=== PATIENT | female | born 1960 | race Caucasian/White ===

== ENCOUNTER 2020-11-22 13:41 | Outpatient (REF) | payer OTHER, SELFPAY | END 2020-11-22 13:42 | disposition home or self-care (01) | LOC: HO.LAB 13:41 | PROVIDERS: PCP Internal Medicine Endocrinology, Diabetes & Metabolism; Visit Provider Internal Medicine | DX: Z20.822 Contact with and (suspected) exposure to COVID-19 (principal) | CPT/HCPCS: C9803; U0003; U0005 ==

== ENCOUNTER 2021-06-02 09:33 | Observation (INO) | payer OTHER, SELFPAY ==
[2021-06-02] VITALS (7 sets, daily range): BP systolic 143–185; BP diastolic 78–87; PULSE 74–100; RESP 14–20; TEMP 36.1–36.8; O2SAT 96–98; BMI 39.5
--- NOTE | ~2021-06-02 | CT_ITS ---
EXAMINATION: CT HEAD WITHOUT CONTRAST CLINICAL INFORMATION: Headache COMPARISON: Earlier same date TECHNIQUE: Contiguous axial imaging was performed from the skull base to vertex without intravenous administration of contrast. This CT examination was performed using dose optimization techniques as appropriate, variously including the following: *Automated exposure control *Adjustment of mA and/or kV according to patient size (this includes techniques or standardized protocols for targeted exams where dose is matched to indication/reason for exam; i.e. extremities or head) *Use of iterative reconstruction technique DLP: 776c mGy-cm FINDINGS: There is no evidence of acute intracranial hemorrhage or territorial infarction. No abnormal mass effect or midline shift is seen. Flores to white matter differentiation is well preserved. No extra-axial fluid collections are identified. The ventricles are normal in size. There is no abnormal attenuation within the brain parenchyma. Hyperostosis frontalis. The mastoid air cells and visualized portions of the paranasal sinuses are well aerated. CT/CT head/brain wo con IMPRESSION: No acute intracranial pathology.
--- NOTE | ~2021-06-02 | CT_ITS ---
EXAMINATION: CT ANGIOGRAM HEAD CT ANGIOGRAM NECK CLINICAL INFORMATION: Left-sided weakness/paresthesia. COMPARISON: CT head from 06/02/2021. TECHNIQUE: Initial noncontrast window display designer imaging of the head and neck was performed. Comparison is made with noncontrast head CT from earlier today. Test bolus sequences followed by intravenous administration 70 mL of Omnipaque 350. Helical imaging was performed in the axial plane from the aortic arch to the skull vertex. Delayed postcontrast imaging of the head was also performed. The data was processed at the certified neurodiagnostic technologist's workstation for generation of MIP sequences. Angled MIPs and volume rendered reformatted images were also generated at an offline 3D workstation. Stenoses are assessed in accordance with NASCET criteria unless otherwise indicated. This CT examination was performed using dose optimization techniques as appropriate, variously including the following: *Automated exposure control. *Adjustment of mA and/or kV according to patient size (this includes techniques or standardized protocols for targeted exams where dose is matched to indication/reason for exam; i.e. extremities or head). *Use of iterative reconstruction technique. DLP: 1613 mGy-cm FINDINGS: CT Head: There is no evidence of acute intracranial hemorrhage or edematous territorial infarction. There is no abnormal attenuation within the brain parenchyma. Flores-white matter differentiation is preserved. The ventricles are normal in size and configuration. No evidence for obstructive hydrocephalus. No abnormal mass effect or midline shift. No extra-axial fluid collections. No pathologic intra-axial enhancement or regional oligemia. No acute soft tissue or osseous abnormalities. Mild mucosal thickening of the paranasal sinuses. The mastoid air cells and middle ear cavities are clear. Periapical lucencies associated with the mandibular left 2nd premolar and maxillary left 1st molar. CT Neck: The thyroid gland and remaining cervical soft tissues are within normal limits. Straightening of the normal cervical lordosis. Moderate degenerative disc disease at C5-C6 and C6-C7 with disc/osteophyte complex formation. CT Upper Chest: The visualized lung apices and upper mediastinum are within normal limits. Neck CTA: Aortic Arch: Normal contour and caliber with moderate calcific atherosclerotic disease. Classic 3 vessel branching pattern of the aortic arch. Great Vessel Origins: No significant stenosis of the branch origins. Right Common Carotid Artery: No focal stenosis or occlusion. Cervical Right Internal Carotid Artery: Calcific atherosclerotic disease of the carotid bulb and proximal internal carotid artery causing less than 50% stenosis. Left Common Carotid Artery: No focal stenosis or occlusion. Cervical Left Internal Carotid Artery: Calcific atherosclerotic disease of the carotid bulb and proximal internal carotid artery causing less than 50% stenosis. Cervical Right Vertebral Artery: Co-dominant. No focal stenosis or occlusion. Cervical Left Vertebral Artery: Co-dominant. No focal stenosis or occlusion. Brain CTA: Intracranial Internal Carotid Arteries: Mild calcific atherosclerotic disease of the intracranial internal carotid arteries without occlusion or flow-limiting stenosis. Right Anterior Cerebral Artery: Normal A1 segment. Normal opacification of the distal LILLIE segments. Left Anterior Cerebral Artery: Normal A1 segment. Normal opacification of the distal LILLIE segments. Anterior Communicating Artery: Normal. Right Middle Cerebral Artery: Normal M1 segment of the MCA without focal stenosis or occlusion. Normal arborization of the distal segments. Left Middle Cerebral Artery: Normal M1 segment of the MCA without focal stenosis or occlusion. Normal arborization of the distal segments. Right Vertebral Artery: Normal V4 segment. Normal opacification of the proximal segments of the posterior inferior cerebellar artery. Left Vertebral Artery: Normal V4 segment. The posterior inferior cerebellar artery is not well opacified; however, there is no CT evidence of acute occlusion. Basilar Artery: Normal without focal stenosis or occlusion. Normal appearance of the proximal superior cerebellar arteries. Right Posterior Cerebral Artery: Normal P1 segment. Normal opacification of the distal PRE CODER segments. Left Posterior Cerebral Artery: The P1 segment is diminutive. origin of the PRE CODER with robust opacification of the posterior communicating artery. Normal opacification of the distal PRE CODER segments. Normal opacification of the superior sagittal, straight, transverse, and sigmoid sinuses. CT/CT angio head neck stroke IMPRESSION: 1. No evidence of acute intracranial hemorrhage or edematous territorial infarction. Mild underlying microangiopathy. 2. CTA of the head and neck without proximal occlusion or flow-limiting stenosis.
--- NOTE | ~2021-06-02 | CT_ITS ---
EXAMINATION: CT HEAD WITHOUT CONTRAST (STROKE PROTOCOL) CLINICAL INFORMATION: Stroke protocol. Left-sided weakness and paresthesia COMPARISON: None TECHNIQUE: Contiguous axial imaging was performed from the skull base to vertex without intravenous administration of contrast. This CT examination was performed using dose optimization techniques as appropriate, variously including the following: *Automated exposure control *Adjustment of mA and/or kV according to patient size (this includes techniques or standardized protocols for targeted exams where dose is matched to indication/reason for exam; i.e. extremities or head) *Use of iterative reconstruction technique DLP: 778 mGy-cm FINDINGS: There is no intracranial hemorrhage, hematoma, or extra-axial fluid collection. The ventricles are normal in size. There is no hydrocephalus, edema, or mass effect. The zuniga-white matter differentiation appears symmetric. There is no acute infarct or mass lesion. The calvarium appears intact. There is no pneumocephalus or orbital emphysema. The visualized sinuses and middle ears and mastoid air cells show no significant mucosal thickening. There are no air-fluid levels. CT/CT head for stroke IMPRESSION: No acute intracranial pathology. This critical result was discussed with Dr. Fabian at 10:12 AM hours on June 02, 2021. It was ascertained that the content and urgency of the report was understood at the time of direct communication.
--- NOTE | 2021-06-02 09:47 | ECG_ITS ---
Test Reason : WEAKNESS Blood Pressure : / mmHG Vent. Rate : 090 BPM Atrial Rate : 092 BPM P-R Int : 144 ms QRS Dur : 086 ms QT Int : 382 ms P-R-T Axes : 056 -09 019 degrees QTc Int : 467 ms Normal sinus rhythm Otherwise normal ECG When compared with ECG of 09-JAN-2009 17:38, No significant changes seen Referred By: Palmira Victoria Electronically Signed By:Martin Miller
--- NOTE | 2021-06-02 09:48 | ED.NEUROSD ---
HPI - Neuro Symptoms/Deficit General Chief Complaint: Weakness Stated Complaint: quest stroke complete l side Time Seen by Provider: 06/02/21 09:38 Source: patient Mode of arrival: ambulatory Limitations: no limitations History of Present Illness HPI Narrative: 60-year-old female with a past medical history of diabetes and hypertension presenting to the ER with complaints of sudden onset of dizziness/ lightheadedness with left-sided weakness/ paresthesia that started approximately 15-30 minutes prior to arrival when she was getting ready to leave her house she was going down the stairs and she felt like she was going to fall although she was able to catch herself on the stairs therefore she is concerned for possible stroke. She reports that she still feels a lightheadedness/ paresthesia. She reports approximately 1-2 weeks ago she had a similar presentation although she had nor did and she reports at that time she felt like she could not feed herself although it resolved and she did not get evaluated due to it resolving. Denies any other episodes other than those two. Denies any recent falls or trauma, denies history of stroke or ID, denies being on any blood thinners. Denies any changes in vision, nausea, jaw pain, vomiting, chest pain or shortness of breath, dyspnea on exertion, orthopnea, palpitations, abdominal pain, back pain, rashes, lower extremity edema or calf tenderness, changes in voice her speech or any other symptoms complaints or concerns at this time. 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) Location: left arm and left leg History of same: Yes ( See above) Severity: mild Quality: weak, numb and constant Relieving factors: none Exacerbating factors: none Context: sudden onset On Anticoagulants: No Associated symptoms: other ( lightheadedness/dizziness) Treatments Prior to Arrival: none Related Data Allergies Allergy/AdvReac Type Severity Reaction Status Date / Time Penicillins Allergy Hives Verified 06/02/21 09:48 From ZANTAC Allergy Unknown ANAPHYLAXIS Uncoded 06/02/21 09:47 Review of Systems Review of Systems: Constitutional : No Fever, No Chills, No Night Sweats, No Fatigue, No Malaise ENT/Mouth : No Ear Pain, No Nasal Congestion, No Sinus Pain, No sore throat, No Rhinorrhea Eyes: No Eye Pain, No Swelling, No Redness, No Foreign Body, No Discharge, No Vision Changes Cardiovascular : No Chest Pain, No SOB, No Dyspnea on Exertion, No Orthopnea, No Palpitations Respiratory : No Cough, No Sputum, No Wheezing, No Dyspnea Gastrointestinal : No Nausea, No Vomiting, No Diarrhea, No Constipation, No abdominal Pain, No Hematochezia, No Melena Genitourinary : No Dysuria, No Urinary Frequency, No Urinary Incontinence, No Urgency, No Flank Pain Musculoskeletal : No joint pain, No Myalgias Skin : No lacerations Neuro : + dizziness/lightheadedness, + left sided general weakness per patient and left sided numbness/ paresthesia sensation, No Loss of Consciousness, No Dizziness, No Headache Yes all other systems are reviewed and are negative [facility] Past Medical History Attestation statement: The following information was validated with the patient. Medical History (Updated 06/02/21 @ 11:36 by Lucas Fortune MD) Diabetes HTN (hypertension) Obesity Social History Social History Advance Directives: No Advance Directives Information Provided: Yes Patient : No Physical Exam Vital Signs: Vital Signs: Last Vital Signs Temp 97.8 F 06/02/21 09:41 Pulse 86 06/02/21 10:19 Resp 14 06/02/21 10:19 BP 185/87 H 06/02/21 10:23 Pulse Ox 96 06/02/21 10:19 BMI result Body Mass Index 39.5 Vital signs have been reviewed as normal and appeared to be correct. Blood pressure normal. Heart rate normal. Respiration rate normal. Temperature normal. Oxygen saturation normal. Appearance: Alert. Oriented X3. No acute distress. Head: Normal external exam. Normocephalic. Atraumatic. Able to rotate head bilaterally. Eyes: PERRLA. EOMI. No nystagmus noted. Conjunctiva and sclera normal. Eyelids normal. Corneal reflex normal. ENT: EAC normal. TM's Normal. Hearing normal. Pharynx normal. Uvula midline. tongue midline. Moist mucous membranes. No trismus noted. No drooling noted. No muffled voice noted. No nystagmus noted. Neck: Normal inspection. Neck supple. FROM. No adenopathy. Trachea midline. Thyroid Normal. No meningeal signs. No neck mass noted. CVS: Normal heart rate and rhythm. Heart sound normal. No murmurs noted. Pulses normal throughout. Respiratory: No respiratory distress. Painless inspiration. Breath sounds normal. No wheezes/rales/rhonchi noted. Chest nontender. No accessory muscle usage noted or decreased air movement noted. Abdomen: Soft and nontender. Bowel sounds normal in all 4 quadrants. No distention noted. No organomegaly noted. No visible injury noted. Back: No CVA tenderness. Full range of motion noted. Skin: Skin warm and dry. Normal skin color. Normal skin turgor. No rashes/lesions/lacerations noted. Extremities: No lower extremity edema. Extremities exhibit normal range of motion. Extremities nontender. Able to shrug shoulders bilaterally and keep up against resistance. Neuro: Oriented X 3. No motor deficit. No sensory deficit. Reflexes normal. Moving all extremities. No focal motor deficits. Cranial nerves II-XI intact bilaterally. Facial strength normal. Normal cognition. Speech normal. Gait normal. Strength 5/5 throughout. No pronator drift. No tremor noted. No fasciculations noted. No rigidity noted. Muscle tone normal throughout. No asterixis noted. [id number] test normal. Heel to clifton test normal. Tandem gait normal. Does not sway with eyes open. Romberg test negative. Rapid alternating movement upper extremity normal. Rapid alternating movement lower extremity normal. Hand drop from overhead Misses face. NIHSS score 0. Course Course Course Narrative: 9:50am - 60-year-old female with a past medical history of diabetes and hypertension presenting to the ER with complaints of sudden onset of dizziness/ lightheadedness with left-sided weakness/ paresthesia that started approximately 15-30 minutes prior to arrival when she was getting ready to leave her house she was going down the stairs and she felt like she was going to fall although she was able to catch herself on the stairs therefore she is concerned for possible stroke. She reports that she still feels a lightheadedness/ paresthesia. She reports approximately 1-2 weeks ago she had a similar presentation although she had nor did and she reports at that time she felt like she could not feed herself although it resolved and she did not get evaluated due to it resolving. Denies any other episodes other than those two. Patient was even able to drive herself here and was able to undress herself in the room. on exam patient is alert oriented x3. Not in any acute distress. No focal neuro deficits are noted. She has a normal steady gait. Moving all extremities no weakness. She has full sensation. 5/5 motor for all extremities. Normal voice. Lungs clear to auscultation. CV RRR. Abdomen is soft and nontender. No lower extremity edema or calf tenderness noted. NIH SS score 0 at this time. Therefore at this time patient is not a tPA candidate due to she has non disabling symptoms. At this time will obtain stroke protocol which includes labs, CT scan of brain, CTA of head and neck, chest x-ray, EKG and re-evaluate. Reevaluation(s) Reevaluation #1: - labs reviewed and glucose at 02:44 otherwise all other labs are within normal limits. Patient negative for COVID. EKG within normal limits normal sinus rhythm no acute ischemic change are noted similar compared to prior. - CT scan of brain without contrast negative for any acute processes. CTA of head and neck for stroke with IV contrast revealed chronic changes no acute processes noted therefore I discussed this with the patient reported that she could possibly have a TIA due to she still reports some lightheadedness and some numbness to the left side although her neuro exam continues to be normal her NIH SS score continues to be 0. She does not have any disabling symptoms therefore she is not a tPA candidate. Therefore discussing this case with Dr. Fortune and plan to admit at this time. Patient understands agrees with this plan. Time: 11:18 MDM - Neuro Symptoms/Deficit Medical Records Attestation: I reviewed the patient's medical records. Lab Data Attestation: I reviewed the patient's lab results. Result diagrams: 06/02/21 09:55 06/02/21 09:55 Labs: Lab Results 06/02/21 06/02/21 06/02/21 Range/Units 09:55 09:55 09:55 WBC 7.1 (4.8-10.8) X10*3/uL RBC 5.12 (4.20-5.50) X10*6/uL Hgb 14.9 (12.0-16.0) g/dl Hct 44.4 (37.0-47.0) % MCV 86.7 (80.0-98.0) fL MCH 29.1 (27.0-33.0) pg MCHC 33.6 (31.0-35.0) g/dl RDW 11.9 (11.0-16.0) % Plt Count 289 (160-400) X10*3/uL MPV 9.2 L (9.4-12.3) fL Immature Gran % (Auto) 0.3 (0.0-0.4) % Neut % (Auto) 65.7 (45-73) % Lymph % (Auto) 25.0 (20-40) % Tillman % (Auto) 6.2 (2-11) % Eos % (Auto) 1.8 (0-4) % Baso % (Auto) 1.0 (0-2) % Lymph # (Auto) 1.8 (1.2-4.9) X10*3/uL Tillman # (Auto) 0.4 (0.1-1.2) X10*3/uL Eos # (Auto) 0.1 (0.0-0.4) X10*3/uL Baso # (Auto) 0.1 (0.0-0.2) X10*3/uL Abs Immat Gran (auto) 0.02 (0.00-0.03) X10*3/uL Absolute Neuts (auto) 4.7 (2.0-8.3) x10*3/uL Absolute Nucleated RBC 0.000 (0.0-0.012) X10*3/uL Nucleated RBC % (auto) 0.0 (0.0-0.2) /100WBC PT 11.3 (9.9-13.0) SEC Whole Blood PT (11.1-13.5) sec INR 1.0 (0.9-1.1) Whole Blood INR (0.9-1.1) APTT 35.1 (24.1-38.0) SEC Sodium 138 (135-145) mmol/L Potassium 4.4 (3.3-5.1) mmol/L Chloride 105 (96-108) mmol/L Carbon Dioxide 24 (22-29) mmol/L Anion Gap 13 (12-20) BUN 10 (9-16) mg/dL Creatinine 0.79 (0.5-1.4) mg/dL Estim Creat Clear Calc 90.4 Estimated GFR > 60 POC Glucose (60-115) mg/dL Random Glucose 244 H (60-115) mg/dL Calcium 9.6 (8.4-10.2) mg/dL Magnesium 1.8 (1.6-2.6) mg/dL Total Bilirubin 0.7 (0.0-1.0) mg/dL AST 24 (5-31) U/L ALT 30 (0-31) U/L Alkaline Phosphatase 100 (39-117) U/L Total Creatine Kinase 91 (26-140) U/L Troponin I High Sens (<3.5-17.0) ng/L Total Protein 7.5 (6.5-8.0) g/dL Albumin 4.0 (3.5-5.0) g/dL TSH 2.70 (0.32-4.0) uIU/mL COVID-19 (NABIL) (Negative) COVID-19 Clin Com 06/02/21 06/02/21 06/02/21 Range/Units 09:55 09:56 09:56 WBC (4.8-10.8) X10*3/uL RBC (4.20-5.50) X10*6/uL Hgb (12.0-16.0) g/dl Hct (37.0-47.0) % MCV (80.0-98.0) fL MCH (27.0-33.0) pg MCHC (31.0-35.0) g/dl RDW (11.0-16.0) % Plt Count (160-400) X10*3/uL MPV (9.4-12.3) fL Immature Gran % (Auto) (0.0-0.4) % Neut % (Auto) (45-73) % Lymph % (Auto) (20-40) % Tillman % (Auto) (2-11) % Eos % (Auto) (0-4) % Baso % (Auto) (0-2) % Lymph # (Auto) (1.2-4.9) X10*3/uL Tillman # (Auto) (0.1-1.2) X10*3/uL Eos # (Auto) (0.0-0.4) X10*3/uL Baso # (Auto) (0.0-0.2) X10*3/uL Abs Immat Gran (auto) (0.00-0.03) X10*3/uL Absolute Neuts (auto) (2.0-8.3) x10*3/uL Absolute Nucleated RBC (0.0-0.012) X10*3/uL Nucleated RBC % (auto) (0.0-0.2) /100WBC PT (9.9-13.0) SEC Whole Blood PT 12.2 (11.1-13.5) sec INR (0.9-1.1) Whole Blood INR 1.0 (0.9-1.1) APTT (24.1-38.0) SEC Sodium (135-145) mmol/L Potassium (3.3-5.1) mmol/L Chloride (96-108) mmol/L Carbon Dioxide (22-29) mmol/L Anion Gap (12-20) BUN (9-16) mg/dL Creatinine (0.5-1.4) mg/dL Estim Creat Clear Calc Estimated GFR POC Glucose 243 H (60-115) mg/dL Random Glucose (60-115) mg/dL Calcium (8.4-10.2) mg/dL Magnesium (1.6-2.6) mg/dL Total Bilirubin (0.0-1.0) mg/dL AST (5-31) U/L ALT (0-31) U/L Alkaline Phosphatase (39-117) U/L Total Creatine Kinase (26-140) U/L Troponin I High Sens < 3.5 (<3.5-17.0) ng/L Total Protein (6.5-8.0) g/dL Albumin (3.5-5.0) g/dL TSH (0.32-4.0) uIU/mL COVID-19 (NABIL) (Negative) COVID-19 Clin Com 06/02/21 Range/Units 10:35 WBC (4.8-10.8) X10*3/uL RBC (4.20-5.50) X10*6/uL Hgb (12.0-16.0) g/dl Hct (37.0-47.0) % MCV (80.0-98.0) fL MCH (27.0-33.0) pg MCHC (31.0-35.0) g/dl RDW (11.0-16.0) % Plt Count (160-400) X10*3/uL MPV (9.4-12.3) fL Immature Gran % (Auto) (0.0-0.4) % Neut % (Auto) (45-73) % Lymph % (Auto) (20-40) % Tillman % (Auto) (2-11) % Eos % (Auto) (0-4) % Baso % (Auto) (0-2) % Lymph # (Auto) (1.2-4.9) X10*3/uL Tillman # (Auto) (0.1-1.2) X10*3/uL Eos # (Auto) (0.0-0.4) X10*3/uL Baso # (Auto) (0.0-0.2) X10*3/uL Abs Immat Gran (auto) (0.00-0.03) X10*3/uL Absolute Neuts (auto) (2.0-8.3) x10*3/uL Absolute Nucleated RBC (0.0-0.012) X10*3/uL Nucleated RBC % (auto) (0.0-0.2) /100WBC PT (9.9-13.0) SEC Whole Blood PT (11.1-13.5) sec INR (0.9-1.1) Whole Blood INR (0.9-1.1) APTT (24.1-38.0) SEC Sodium (135-145) mmol/L Potassium (3.3-5.1) mmol/L Chloride (96-108) mmol/L Carbon Dioxide (22-29) mmol/L Anion Gap (12-20) BUN (9-16) mg/dL Creatinine (0.5-1.4) mg/dL Estim Creat Clear Calc Estimated GFR POC Glucose (60-115) mg/dL Random Glucose (60-115) mg/dL Calcium (8.4-10.2) mg/dL Magnesium (1.6-2.6) mg/dL Total Bilirubin (0.0-1.0) mg/dL AST (5-31) U/L ALT (0-31) U/L Alkaline Phosphatase (39-117) U/L Total Creatine Kinase (26-140) U/L Troponin I High Sens (<3.5-17.0) ng/L Total Protein (6.5-8.0) g/dL Albumin (3.5-5.0) g/dL TSH (0.32-4.0) uIU/mL COVID-19 (NABIL) Negative (Negative) COVID-19 Clin Com See Note Imaging Data CT scan of brain without contrast: Attestation: I personally reviewed and interpreted this imaging study as follows: Radiologist's impression: FINDINGS: There is no intracranial hemorrhage, hematoma, or extra-axial fluid collection.? The ventricles are normal in size. There is no hydrocephalus, edema, or mass effect.? The flores-white matter differentiation appears symmetric. There is no acute infarct or mass lesion. The calvarium appears intact. There is no pneumocephalus or orbital emphysema.? The visualized sinuses and middle ears and mastoid air cells show no significant mucosal thickening. There are no air-fluid levels. CT/CT head for stroke IMPRESSION: No acute intracranial pathology. ? This critical result was discussed with Dr. Fabian at 10:12 AM hours on June 02, 2021. It was ascertained that the content and urgency of the report was understood at the time of direct communication. CTA of head and neck with contrast: Attestation: I personally reviewed and interpreted this imaging study as follows: Radiologist's impression: FINDINGS: CT Head: There is no evidence of acute intracranial hemorrhage or edematous territorial infarction. There is no abnormal attenuation within the brain parenchyma. Flores-white matter differentiation is preserved. The ventricles are normal in size and configuration. No evidence for obstructive hydrocephalus. No abnormal mass effect or midline shift. No extra-axial fluid collections. No pathologic intra-axial enhancement or regional oligemia. No acute soft tissue or osseous abnormalities. Mild mucosal thickening of the paranasal sinuses. The mastoid air cells and middle ear cavities are clear. Periapical lucencies associated with the mandibular left 2nd premolar and maxillary left 1st molar. CT Neck: The thyroid gland and remaining cervical soft tissues are within normal limits. Straightening of the normal cervical lordosis. Moderate degenerative disc disease at C5-C6 and C6-C7 with disc/osteophyte complex formation. CT Upper Chest: The visualized lung apices and upper mediastinum are within normal limits. Neck CTA: Aortic Arch: Normal contour and caliber with moderate calcific atherosclerotic disease. Classic 3 vessel branching pattern of the aortic arch. Great Vessel Origins: No significant stenosis of the branch origins. Right Common Carotid Artery: No focal stenosis or occlusion. Cervical Right Internal Carotid Artery: Calcific atherosclerotic disease of the carotid bulb and proximal internal carotid artery causing less than 50% stenosis. Left Common Carotid Artery: No focal stenosis or occlusion. Cervical Left Internal Carotid Artery: Calcific atherosclerotic disease of the carotid bulb and proximal internal carotid artery causing less than 50% stenosis. Cervical Right Vertebral Artery: Co-dominant. No focal stenosis or occlusion. Cervical Left Vertebral Artery: Co-dominant. No focal stenosis or occlusion. Brain CTA: Intracranial Internal Carotid Arteries: Mild calcific atherosclerotic disease of the intracranial internal carotid arteries without occlusion or flow-limiting stenosis. Right Anterior Cerebral Artery: Normal A1 segment. Normal opacification of the distal LILLIE segments. Left Anterior Cerebral Artery: Normal A1 segment. Normal opacification of the distal LILLIE segments. Anterior Communicating Artery: Normal. Right Middle Cerebral Artery: Normal M1 segment of the MCA without focal stenosis or occlusion. Normal arborization of the distal segments. Left Middle Cerebral Artery: Normal M1 segment of the MCA without focal stenosis or occlusion. Normal arborization of the distal segments. Right Vertebral Artery: Normal V4 segment. Normal opacification of the proximal segments of the posterior inferior cerebellar artery. Left Vertebral Artery: Normal V4 segment. The posterior inferior cerebellar artery is not well opacified; however, there is no CT evidence of acute occlusion. Basilar Artery: Normal without focal stenosis or occlusion. Normal appearance of the proximal superior cerebellar arteries. Right Posterior Cerebral Artery: Normal P1 segment. Normal opacification of the distal C[employer] SUPERVISOR segments. Left Posterior Cerebral Artery: The P1 segment is diminutive. origin of the [employer] with robust opacification of the posterior communicating artery. Normal opacification of the distal C[employer] SUPER[employer]OR segments. Normal opacification of the superior sagittal, straight, transverse, and sigmoid sinuses. CT/CT angio head? neck stroke IMPRESSION: 1. No evidence of acute intracranial hemorrhage or edematous territorial infarction. Mild underlying microangiopathy. 2. CTA of the head and neck without proximal occlusion or flow-limiting stenosis. ECG Data Attestation: I personally reviewed and interpreted this ECG as follows: ECG interpretation date: 04/16/22 ECG interpretation time: 10:14 Interpretation: normal sinus rhythm with ventricular rate of 90 with a normal FL interval normal QRS duration normal QT/ QTC interval. No acute ischemic change are noted. Similar compared to prior EKG 01/09/2009 NIH Stroke Scale Internal: Initial- Upon Arrival Time: 09:53 Level of Consciousness: Alert Level of Consciousness Questions: Answers both questions correctly Level of Consciousness Commands: Performs both tasks correctly Best Gaze: Normal Visual: No visual loss Facial Palsy: Normal Motor Arm (Right): No drift Motor Arm (Left): No drift Motor Leg (Right): No drift Motor Leg (Left): No drift Limb Ataxia: Absent Sensory: Normal Best Language: No aphasia Dysarthia: Normal Extinction and Inattention: No abnormality Score: 0 Critical Care Time Critical Care Time Critical Care Time: Yes Total Critical Care Time: 60 Attestation: I personally attest to this time spent taking care of the patient Discharge Plan Discharge Clinical Impression: TIA (transient ischemic attack) Patient Disposition: Admitted As Inpatient
[2021-06-02 10:00] LABS: Glucose, Whole Blood 243 mg/dL (60-115); Prothrombin Time Whole Bld POC 12.2 sec (11.1-13.5)
[2021-06-02 10:02] LABS: Basophils Absolute Auto 0.1 X10*3/uL (0.0-0.2); Eosinophils Absolute Auto 0.1 X10*3/uL (0.0-0.4); Eosinophils Percent Auto 1.8 % (0-4); Hematocrit 44.4 % (37.0-47.0); Hemoglobin 14.9 g/dl (12.0-16.0); Imm Gran Abs Auto 0.02 X10*3/uL (0.00-0.03); Imm Gran Pct Auto 0.3 % (0.0-0.4); Lymphocytes Absolute Auto 1.8 X10*3/uL (1.2-4.9); MANUAL DIFF FLAG NO; Mean Corpuscular HGB Conc 33.6 g/dl (31.0-35.0); Mean Corpuscular Hemoglobin 29.1 pg (27.0-33.0); Mean Corpuscular Volume 86.7 fL (80.0-98.0); Mean Platelet Volume 9.2 fL (9.4-12.3); Monocytes Absolute Auto 0.4 X10*3/uL (0.1-1.2); Monocytes Percent Auto 6.2 % (2-11); Neutrophils Absolute Auto 4.7 x10*3/uL (2.0-8.3); Neutrophils Percent Auto 65.7 % (45-73); Platelet Count 289 X10*3/uL (160-400); Red Blood Count 5.12 X10*6/uL (4.20-5.50); Red Cell Distribution Width 11.9 % (11.0-16.0); White Blood Count 7.1 X10*3/uL (4.8-10.8)
[2021-06-02 10:08] LABS: Prothrombin Time 11.3 SEC (9.9-13.0)
[2021-06-02 10:11] LABS: Partial Thromboplastin Time 35.1 SEC (24.1-38.0)
[2021-06-02 10:12] LABS: Stroke Lab Use COMPLETE
[2021-06-02] MEDS: iohexoL 350 MG/ML 100 ML INFUS..BTL IV (10:13)
[2021-06-02 10:18] LABS: Alanine Aminotransferase 30 U/L (0-31); Alkaline Phosphatase 100 U/L (39-117); Anion Gap 13 (12-20); Aspartate Amino Transferase 24 U/L (5-31); Bilirubin Total 0.7 mg/dL (0.0-1.0); Blood Urea Nitrogen 10 mg/dL (9-16); Calcium 9.6 mg/dL (8.4-10.2); Carbon Dioxide 24 mmol/L (22-29); Chloride 105 mmol/L (96-108); Creatinine Clr Calc Pharmacy 90.4; Estimated Glomerular Filt Rate > 60; Glucose Random 244 mg/dL (60-115); Magnesium 1.8 mg/dL (1.6-2.6); Potassium 4.4 mmol/L (3.3-5.1); Sodium 138 mmol/L (135-145); Total Protein 7.5 g/dL (6.5-8.0)
[2021-06-02 10:23] LABS: Troponin-I High Sensitivity < 3.5 ng/L (<3.5-17.0)
[2021-06-02] MEDS: 0.9 % Sodium Chloride 1,000 ML 999 ML IVCONT (10:23)
[2021-06-02 10:58] LABS: COVID-19 Test Negative (Negative); IDNOW Serial# 16C4AD1C
[2021-06-02] MEDS: Acetaminophen 325 MG TABLET 975 MG PO (11:25)
--- NOTE | 2021-06-02 11:31 | PC.NURSE ---
pt resting comfortable, NAD. aware that she will be admitted to the hospital for further management.
--- NOTE | 2021-06-02 11:34 | PM.IMHP ---
History of Present Illness Date of Service: 06/02/21 Chief Complaint: left sided weakness ?60-year-old female with a past medical history of obesity, diabetes and hypertension presenting with acute onset of dizziness/ lightheadedness and lleft-sided weakness and numbness that started approximately 15-30 minutes prior to arrival when she was getting ready to leave her house she was going down the stairs and she felt like she was going to fall although she was able to catch herself . She reports similar episode about a week or 2 ago. NIH ss score is 0.. CT head and Neck is negative. She is still experiencing numbness of entire left side. Exam is unremarkable and she's been observed for TIA. Review of Systems Review of Systems: Gen: no fever Resp: no sob, no cough CV: no chest, no PETER, no leg edema GI: No n/v, no abd pain Neuro: No confusion [facility] Medical History (Updated 06/02/21 @ 11:36 by Lucas Fortune MD) Diabetes HTN (hypertension) Obesity Social History Advance Directives: No Advance Directives Information Provided: Yes Patient : No Meds Allergies Allergy/AdvReac Type Severity Reaction Status Date / Time Penicillins Allergy Hives Verified 06/02/21 09:48 From ZANTAC Allergy Unknown ANAPHYLAXIS Uncoded 06/02/21 09:47 Active Medications: Current Medications Pharmacy Consult (Consult Rx Perform Med Rec) 1 each MISCELLANE ONCE PRN PRN Reason: Consult order Home Medications Medication Instructions Recorded Confirmed Last Taken Type cetirizine 10 mg tablet (Zyrtec) 10 mg PO DAILY PRN 06/02/21 06/02/21 Unknown History insulin glargine U-300 conc 300 60 unit SUBCUT BID 06/02/21 06/02/21 06/01/21 History unit/mL (3 mL) subcutaneous pen (Toujeo Max U-300 SoloStar) insulin lispro 100 unit/mL 20 unit SUBCUT TIDAC 06/02/21 06/02/21 06/01/21 History subcutaneous pen (Humalog KwikPen (U-100) Insulin) irbesartan 300 mg tablet 300 mg PO DAILY 06/02/21 06/02/21 06/01/21 History Physical Exam Vital Signs and Narrative: Vital Signs: Last Vital Signs Temp 97.8 F 06/02/21 09:41 Pulse 86 06/02/21 10:19 Resp 14 06/02/21 10:19 BP 185/87 H 06/02/21 10:23 Pulse Ox 96 06/02/21 10:19 BMI result Body Mass Index 39.5 Const: Other: Constitutional: Alert, in no distress, overweight. Mental Status: Oriented to person, place and time. Eyes: Pupils are equal, round and reactive to light. Ear, Nose and Throat: Oropharynx clear, mucous membranes moist. Ears and nose without eformities. Trachea midline. Respiratory: Clear to auscultation. No wheezing, rales or rhonchi. Cardiovascular: S1 S2 regular. No murmurs, rubs or gallops. Gastrointestinal: Abdomen soft, non-tender, non-distended. Normal bowel sounds.? Neurologic: Cranial nerves II-XII grossly intact. No focal neurological deficits. Moves all extremities spontaneously.?Essentially normal exam Skin: No rashes or lesions.? Musculoskeletal: No cyanosis or clubbing. Psychiatric: Normal mood and affect? Results Labs CBC and Chem 7: 06/02/21 09:55 06/02/21 09:55 Imaging Radiologist's Impressions: Impressions Head CT 06/02/21 10:04 IMPRESSION: No acute intracranial pathology. This critical result was discussed with Dr. Fabian at 10:12 AM hours on June 02, 2021. It was ascertained that the content and urgency of the report was understood at the time of direct communication. Head/Neck CTA 06/02/21 10:12 IMPRESSION: 1. No evidence of acute intracranial hemorrhage or edematous territorial infarction. Mild underlying microangiopathy. 2. CTA of the head and neck without proximal occlusion or flow-limiting stenosis. Assessment and Plan (1) Obesity: Status: Acute (2) TIA (transient ischemic attack): Status: Acute (3) HTN (hypertension): Status: Acute (4) Diabetes: Status: Acute Plan TIA--observe, neuro check, ASA, neuro consult, BP control, check lipids tomorrow HTN--BP is on high side, hasn't taken meds today, will order home meds Diabetes--restart home meds, SSI, diabetic diet Obesity--weight loss advised,diet or DVT prophy: Low risk Quality Stroke Does the patient have a stroke diagnosis?: No VTE Prior VTE?: No VTE Risk Level:: Medical - low VTE Device Contraindication: Treatment Not Indicated VTE Drug Contraindication: Treatment Not Indicated
--- NOTE | 2021-06-02 12:06 | PHA.MEDREC ---
Pharmacy Consult ? Medication Reconciliation Pharmacy has completed the medication reconciliation. SPOKE WITH PT
[2021-06-02 12:08] LABS: Appearance Urine CLEAR; Color Urine STRAW; Glucose Urine UA NEG (NEG); Leukocyte Esterase Urine NEG (NEG); Nitrite Urine NEG (NEG); PH 5.5 (5.0-8.0); Specific Gravity - Urine <= 1.005 (1.005-1.025); Urine Blood NEG (NEG); Urine Ketones NEG (NEG); Urine Protein NEG (NEG-TRACE)
[2021-06-02 16:30] LABS: Glucose, Whole Blood 96 mg/dL (60-115)
[2021-06-02 19:27] LABS: Glucose, Whole Blood 268 mg/dL (60-115)
[2021-06-02] MEDS: Acetaminophen 325 MG TABLET 650 MG PO (20:33)
[2021-06-02] MEDS: Insulin Glargine,Hum.rec.anlog 100 UNIT/ML 10 ML VIAL 40 UNIT SUBCUT (20:41)
[2021-06-02] MEDS: Insulin Lispro 100 UNIT/ML 3 ML VIAL SUBCUT (20:41)
[2021-06-02] MEDS: 0.9 % Sodium Chloride Flush 3 ML SYRINGE IVFLUSH (20:41)
[2021-06-02] MEDS: oxyCODONE HCl Immed Release 5 MG TABLET PO (22:03)
[2021-06-03 03:33] VITALS: BP 132/73; PULSE 75; RESP 20; TEMP 36.2; O2SAT 97
[2021-06-03 06:23] LABS: Cholesterol 189 mg/dL; HDL Cholesterol 41 mg/dL; LDL Cholesterol Calculated 113 mg/dl; Triglycerides 176 mg/dL
[2021-06-03 07:45] VITALS: BP 134/68; PULSE 77; RESP 16; TEMP 36.3; O2SAT 95
[2021-06-03] MEDS: Insulin Glargine,Hum.rec.anlog 100 UNIT/ML 10 ML VIAL 40 UNIT SUBCUT ×2 (09:29→20:46)
[2021-06-03] MEDS: Aspirin Enteric Coated 81 MG TABLET.DR PO (09:29)
[2021-06-03] MEDS: Valsartan 160 MG TABLET PO (09:29)
[2021-06-03 09:46] LABS: Glucose, Whole Blood 101 mg/dL (60-115)
--- NOTE | 2021-06-03 09:53 | MHC.CM.PN ---
met with pt who lives alone pt is independent dc plan home no services
--- NOTE | 2021-06-03 10:00 | PM.EVENT ---
Event Note Date of Service: 06/03/21 Event Note: Patient seen and examined, vital review. Numbness on left side is better, but now withsome headache General: AO X 3, no acute distress Resp: CTA bilateral CVS: S1,S2,RRR GI: +BS, NT, no distention Skin: No rash Neuro: motor grossly intact Psych: appropriate affect A/P: Left sided numness, headache initiallly thought to be TIA, awaiting for neurologist eval for possible discharge Late entry note for 06/03/21
--- NOTE | 2021-06-03 10:03 | MHC.CM.PN ---
pt dcd home no skilled servceis ordered by
[2021-06-03 11:57] VITALS: BP 146/77; PULSE 89; RESP 18; TEMP 36.6; O2SAT 96
[2021-06-03 12:14] LABS: Glucose, Whole Blood 266 mg/dL (60-115)
[2021-06-03] MEDS: Insulin Lispro 100 UNIT/ML 3 ML VIAL SUBCUT ×2 (12:52→20:47)
[2021-06-03] MEDS: 0.9 % Sodium Chloride Flush 3 ML SYRINGE IVFLUSH ×2 (12:54→20:47)
[2021-06-03 15:49] VITALS: BP 118/57; PULSE 83; RESP 16; TEMP 36.9; O2SAT 95
[2021-06-03 16:46] LABS: Glucose, Whole Blood 124 mg/dL (60-115)
[2021-06-03 20:00] VITALS: BP 145/59; PULSE 80; RESP 18; TEMP 36.9; O2SAT 98
[2021-06-03 20:34] LABS: Glucose, Whole Blood 211 mg/dL (60-115)
[2021-06-03] MEDS: Acetaminophen 325 MG TABLET 650 MG PO (20:46)
[2021-06-03 23:42] VITALS: BP 147/77; PULSE 72; RESP 18; TEMP 36.2; O2SAT 97
[2021-06-04 04:00] VITALS: BP 137/56; PULSE 18; RESP 75; TEMP 36.1; O2SAT 98
[2021-06-04 07:49] VITALS: BP 140/75; PULSE 74; RESP 20; TEMP 36.3; O2SAT 96
[2021-06-04 08:24] LABS: Glucose, Whole Blood 105 mg/dL (60-115)
[2021-06-04] MEDS: Acetaminophen 325 MG TABLET 650 MG PO (08:34)
[2021-06-04] MEDS: Valsartan 160 MG TABLET PO (08:37)
[2021-06-04] MEDS: Aspirin Enteric Coated 81 MG TABLET.DR PO (08:37)
[2021-06-04] MEDS: Insulin Glargine,Hum.rec.anlog 100 UNIT/ML 10 ML VIAL 40 UNIT SUBCUT (08:37)
[2021-06-04] MEDS: 0.9 % Sodium Chloride Flush 3 ML SYRINGE IVFLUSH (08:37)
--- NOTE | 2021-06-04 09:35 | P.CNNE_ITS ---
History of Present Illness Data of Consult Service Date: 06/04/21 Primary Care Provider: Lydia Vera MD HPI Reason for consult: Numbness and headache 60 years old woman who came to hospital after an episode similar to the 1 she had a week ago. Each time she was busy with her day-to-day work when she noted that her left hand was weak. Soon she had a limp and numb feeling affecting left side of her body involving hand and face and then going down to the leg in a matter of couple of minutes. Each time it lasted for couple of minutes of few minutes. She was not confused. After 2nd episode she was having headache and yesterday she had significant headache. She said that previously she used to have routine headaches. There was no recent cold or flu-like illness per Review of Systems Review of Systems: No recent cold or flu-like illness. [facility] Past Medical History Medical History (Updated 06/04/21 @ 09:37 by Amado Sainz MD) Diabetes HTN (hypertension) Obesity Social History Social History Patient Tobacco Use Status: Never used Tobacco Advance Directives: No Advance Directives Information Provided: Yes (family caseworker to come see patient) Advance Directives on File: No Patient : No service: No Meds Allergies Allergy/AdvReac Type Severity Reaction Status Date / Time Penicillins Allergy Hives Verified 06/02/21 09:48 From ZANTAC Allergy Unknown ANAPHYLAXIS Uncoded 06/02/21 09:47 Active Medications: Current Medications Acetaminophen (Acetaminophen 325 Mg Tablet) 650 mg PO Q6H PRN PRN Reason: Pain, Mild (Pain Scale 1-3) Last Admin: 06/04/21 08:34 Dose: 650 mg Documented by: Aspirin (Aspirin Enteric Coated 81 Mg Tablet.) 81 mg PO DAILY [facility] Last Admin: 06/04/21 08:37 Dose: 81 mg Documented by: Insulin Glargine (Insulin Glargine,Hum.Rec.Anlog 100 Unit/Ml 10 Ml Vial) 40 unit SUBCUT BID [facility] Last Admin: 06/04/21 08:37 Dose: 40 unit Documented by: Insulin Human Lispro (Insulin Lispro 100 Unit/Ml 3 Ml Vial) 0 unit SUBCUT QIDACHS [facility]; Protocol Last Admin: 06/04/21 08:25 Dose: Not Given Documented by: Loratadine (Loratadine 10 Mg Tablet) 10 mg PO DAILY PRN PRN Reason: Allergy Symptoms Magnesium Hydroxide (Milk Of Magnesia 30 Ml Oral.Susp) 30 ml PO DAILY PRN PRN Reason: Constipation Pharmacy Consult (Consult Rx Perform Med Rec) 1 each MISCELLANE ONCE PRN PRN Reason: Consult order Sodium Chloride (0.9 % Sodium Chloride Flush 3 Ml Syringe) 3 ml IVFLUSH QSHIFT [facility] Last Admin: 06/04/21 08:37 Dose: 3 ml Documented by: Valsartan (Valsartan 160 Mg Tablet) 160 mg PO DAILY [facility] Last Admin: 06/04/21 08:37 Dose: 160 mg Documented by: Home Medications Medication Instructions Recorded Confirmed Last Taken Type cetirizine 10 mg tablet (Zyrtec) 10 mg PO DAILY PRN 06/02/21 06/02/21 Unknown History insulin glargine U-300 conc 300 60 unit SUBCUT BID 06/02/21 06/02/21 06/01/21 History unit/mL (3 mL) subcutaneous pen (Toujeo Max U-300 SoloStar) insulin lispro 100 unit/mL 20 unit SUBCUT TIDAC 06/02/21 06/02/21 06/01/21 History subcutaneous pen (Humalog KwikPen (U-100) Insulin) irbesartan 300 mg tablet 300 mg PO DAILY 06/02/21 06/02/21 06/01/21 History Physical Exam Vital Signs: Vital Signs: Last Vital Signs Temp 97.3 F 06/04/21 07:49 Pulse 74 06/04/21 07:49 Resp 20 06/04/21 07:49 BP 140/75 H 06/04/21 07:49 Pulse Ox 96 06/04/21 07:49 BMI result Body Mass Index 39.5 Neuro: Other: Alert and awake with normal spontaneity of speech fluency comprehension and affect. Face was symmetrical. There was no pronator drift. Plantars were flexors. Visual strong are full. Results Labs CBC & Chem 7: 06/02/21 09:55 06/02/21 09:55 Labs: Noncontrast head CT and CTA of brain and neck did not reveal any significant pathology. Assessment and Plan (1) Migraine equivalent syndrome: Status: Acute 60 years old woman who has clinical features and history are suggestive of migraine equivalent syndrome. She was educated about this condition. I suggested starting her on topiramate 25 mg at night. As far as vascular disease is concerned, usual precautions including a baby aspirin daily blood pressure control and statin should continue. Procedures Date of Service Date of Service: 06/04/21
--- NOTE | 2021-06-04 09:59 | PM.DS ---
DS: Providers Provider Date of Service: 06/03/21 Date of admission: 06/02/21 11:56 Primary care physician: Lydia Vera MD Consults: 06/02/21 11:58 Consult to Neurology Routine Consulting Provider: Amado Sainz Reason for consultation: TIA DS: Diagnosis Discharge Diagnosis (1) Obesity: Status: Acute (2) TIA (transient ischemic attack): Status: Acute (3) HTN (hypertension): Status: Acute (4) Diabetes: Status: Acute DS: Summary Hospital Course Hospital Course: Chief Complaint: left sided weakness ?60-year-old female with a past medical history of? obesity, diabetes and hypertension presenting with acute? onset of dizziness/ lightheadedness and lleft-sided weakness and numbness that started approximately 15-30 minutes prior to arrival when she was getting ready to leave her house she was going down the stairs and she felt like she was going to fall although she was able to catch herself . She reports similar episode about? a week or 2 ago. NIH ss score is 0.. CT head and Neck is negative. She is still experiencing numbness of entire left side. Exam is unremarkable and she's been observed for TIA. Hospital course: patient waas observed overnight with improvment in her symptoms, she then seen by Dr. Sainz and thought that she was suffering Migraine headache and will be managed with Topomax starting wth 25 mg at bedtime and to follow up with Dr. Sainz in the office Time Spent with Patient Time attestation: Total time spent providing and/or coordinating discharge services: Discharge coordination time: Greater than 30 minutes Quality: Safe Use of Opioids Does Pt have an Active Cancer Diagnosis on the Problem List?: No Quality: Stroke Does the patient have a stroke diagnosis?: No Physical Exam Vital Signs: Vital Signs: BP BP 140/75 P74 RR 20 Const: Other: General: AO X 3, no acute distress Resp: CTA bilateral CVS: S1,S2,RRR GI: +BS, NT, no distention Skin: No rash Neuro: motor grossly intact Psych: appropriate affect DS: Data Data Completed and Pending Labs on day of discharge: Laboratory Results - last 24 hr 06/02/21 06/02/21 06/02/21 09:55 09:55 09:55 WBC 7.1 RBC 5.12 Hgb 14.9 Hct 44.4 MCV 86.7 MCH 29.1 MCHC 33.6 RDW 11.9 Plt Count 289 MPV 9.2 L Immature Gran % (Auto) 0.3 Neut % (Auto) 65.7 Lymph % (Auto) 25.0 [place] % (Auto) 6.2 Eos % (Auto) 1.8 Baso % (Auto) 1.0 Lymph # (Auto) 1.8 [place] # (Auto) 0.4 Eos # (Auto) 0.1 Baso # (Auto) 0.1 Abs Immat Gran (auto) 0.02 Absolute Neuts (auto) 4.7 Absolute Nucleated RBC 0.000 Nucleated RBC % (auto) 0.0 PT 11.3 INR 1.0 APTT 35.1 Sodium 138 Potassium 4.4 Chloride 105 Carbon Dioxide 24 Anion Gap 13 BUN 10 Creatinine 0.79 Estim Creat Clear Calc 90.4 Estimated GFR > 60 POC Glucose Random Glucose 244 H Calcium 9.6 Magnesium 1.8 Total Bilirubin 0.7 AST 24 ALT 30 Alkaline Phosphatase 100 Total Creatine Kinase 91 Troponin I High Sens Total Protein 7.5 Albumin 4.0 Triglycerides Cholesterol LDL Cholesterol, Calc HDL Cholesterol TSH 2.70 Urine Color Urine Appearance Urine pH Ur Specific [place] Urine Protein Urine Glucose (UA) Urine Ketones Urine Blood Urine Nitrite Ur Leukocyte Esterase COVID-19 (NABIL) COVID-19 Clin Com 06/02/21 06/02/21 06/02/21 09:55 10:35 11:58 WBC RBC Hgb Hct MCV MCH MCHC RDW Plt Count MPV Immature Gran % (Auto) Neut % (Auto) Lymph % (Auto) [place] % (Auto) Eos % (Auto) Baso % (Auto) Lymph # (Auto) [place] # (Auto) Eos # (Auto) Baso # (Auto) Abs Immat Gran (auto) Absolute Neuts (auto) Absolute Nucleated RBC Nucleated RBC % (auto) PT INR APTT Sodium Potassium Chloride Carbon Dioxide Anion Gap BUN Creatinine Estim Creat Clear Calc Estimated GFR POC Glucose Random Glucose Calcium Magnesium Total Bilirubin AST ALT Alkaline Phosphatase Total Creatine Kinase Troponin I High Sens < 3.5 Total Protein Albumin Triglycerides Cholesterol LDL Cholesterol, Calc HDL Cholesterol TSH Urine Color STRAW Urine Appearance CLEAR Urine pH 5.5 Ur Specific [place] <= 1.005 Urine Protein NEG Urine Glucose (UA) NEG Urine Ketones NEG Urine Blood NEG Urine Nitrite NEG Ur Leukocyte Esterase NEG COVID-19 (NABIL) Negative COVID-19 in[facility] Com See Note 06/02/21 06/02/21 06/03/21 16:26 19:23 04:57 WBC RBC Hgb Hct MCV MCH MCHC RDW Plt Count MPV Immature Gran % (Auto) Neut % (Auto) Lymph % (Auto) [place] % (Auto) Eos % (Auto) Baso % (Auto) Lymph # (Auto) [place] # (Auto) Eos # (Auto) Baso # (Auto) Abs Immat Gran (auto) Absolute Neuts (auto) Absolute Nucleated RBC Nucleated RBC % (auto) PT INR APTT Sodium Potassium Chloride Carbon Dioxide Anion Gap BUN Creatinine Estim Creat Clear Calc Estimated GFR POC Glucose 96 268 H Random Glucose Calcium Magnesium Total Bilirubin AST ALT Alkaline Phosphatase Total Creatine Kinase Troponin I High Sens Total Protein Albumin Triglycerides 176 Cholesterol 189 LDL Cholesterol, Calc 113 HDL Cholesterol 41 TSH Urine Color Urine Appearance Urine pH Ur Specific [place] Urine Protein Urine Glucose (UA) Urine Ketones Urine Blood Urine Nitrite Ur Leukocyte Esterase COVID-19 (NABIL) COVID-19 in[facility] Com 06/03/21 07:48 WBC RBC Hgb Hct MCV MCH MCHC RDW Plt Count MPV Immature Gran % (Auto) Neut % (Auto) Lymph % (Auto) [place] % (Auto) Eos % (Auto) Baso % (Auto) Lymph # (Auto) [place] # (Auto) Eos # (Auto) Baso # (Auto) Abs Immat Gran (auto) Absolute Neuts (auto) Absolute Nucleated RBC Nucleated RBC % (auto) PT INR APTT Sodium Potassium Chloride Carbon Dioxide Anion Gap BUN Creatinine Estim Creat Clear Calc Estimated GFR POC Glucose 101 Random Glucose Calcium Magnesium Total Bilirubin AST ALT Alkaline Phosphatase Total Creatine Kinase Troponin I High Sens Total Protein Albumin Triglycerides Cholesterol LDL Cholesterol, Calc HDL Cholesterol TSH Urine Color Urine Appearance Urine pH Ur Specific [place] Urine Protein Urine Glucose (UA) Urine Ketones Urine Blood Urine Nitrite Ur Leukocyte Esterase COVID-19 (NABIL) COVID-19 in[facility] Com Discharge Plan Discharge Anticipated Discharge Date/Time: 06/03/21 09:58 Patient Disposition: Home, Self-Care Discharge Diagnosis: Migraine headach Referrals: Lydia Vera MD [Primary Care Provider] - 1 Week Discharge Medications: New topiramate 25 mg capsule, sprinkle 25 mg PO BEDTIME Qty: 30 0RF Continued irbesartan 300 mg Tablet 300 mg PO DAILY 0RF insulin lispro [Humalog KwikPen Insulin] 100 unit/mL insulin pen 20 unit subcut TIDAC 0RF Toujeo Max U-300 SoloStar 300 unit/mL (3 mL) insulin pen 60 unit subcut BID 0RF cetirizine [Zyrtec] 10 mg Tablet 10 mg PO DAILY PRN (Reason: Allergy Symptoms) 0RF Discharge Orders: Discharge Order (Routine); Ordered 06/04/21 Ordered By: Lucas Fortune Diet: advance to usual diet and diabetic diet Activity on Discharge: As tolerated Stand Alone Forms: Patient Portal Discharge page Care Plan Goals: Control of Migraine Health Concerns: obesity, diabetes, HTN, Migraine headache Plan of Treatment: Take Topiramate (Topomax) as directed and follow up with Dr. Alarcon in the office Assessment: as above
[2021-06-04 11:37] LABS: Glucose, Whole Blood 268 mg/dL (60-115)
[2021-06-04] MEDS: Insulin Lispro 100 UNIT/ML 3 ML VIAL SUBCUT (12:20)
== END 2021-06-04 14:18 | disposition home or self-care (01) ==
LOC: HO.ED 11:19 → HO.EDOVER 12:35 → HO.IMC 14:15
PROVIDERS: Physician Assistant Medical; Admitting Provider Internal Medicine; Emergency Provider Emergency Medicine; PCP Internal Medicine Endocrinology, Diabetes & Metabolism; Visit Provider Internal Medicine
DX: G43.109 Migraine with aura, not intractable, without status migrainosus (principal); R20.2 Paresthesia of skin; E11.9 Type 2 diabetes mellitus without complications; I10 Essential (primary) hypertension; E66.9 Obesity, unspecified; M85.2 Hyperostosis of skull; K04.90 Unspecified diseases of pulp and periapical tissues; Z68.39 Body mass index [BMI] 39.0-39.9, adult; Z20.822 Contact with and (suspected) exposure to COVID-19; Z88.0 Allergy status to penicillin; Z88.8 Allergy status to other drugs, medicaments and biological substances; Z79.4 Long term (current) use of insulin
CPT/HCPCS: 36415; 70450; 70496; 70498; 80053; 80061; 81003; 82550; 82947; 83735; 84443; 84484; 85025; 85610; 85730; 87635; 93005; 96360; 99219; 99285; 99291; Q9967

== ENCOUNTER 2022-05-20 07:44 | Emergency (ER) | payer OTHER, SELFPAY ==
--- NOTE | ~2022-05-20 | XR_ITS ---
EXAMINATION: XR KNEE, LEFT CLINICAL INFORMATION: Knee pain status post fall. COMPARISON: None available. TECHNIQUE: Four views of the left knee. FINDINGS: Minimal medial femoral-tibial and patellofemoral degenerative joint changes are seen. There is no acute fracture or dislocation. No significant joint effusion. The soft tissues are unremarkable. XR/XR knee LT 4V IMPRESSION: Minimal degenerative joint changes most consistent with osteoarthritis. No acute fracture.
--- NOTE | ~2022-05-20 | XR_ITS ---
EXAMINATION: XR ANKLE, RIGHT CLINICAL INFORMATION: Right foot pain status post fall. COMPARISON: None available. TECHNIQUE: AP, lateral, and mortise views of the right ankle. FINDINGS: The ankle joint and mortise are intact. There is no acute fracture or dislocation. The tarsal bones are normally aligned. There is a small retrocalcaneal spur. Mild soft tissue swelling is seen. XR/XR ankle RT 2V IMPRESSION: 1. Mild soft tissue swelling without acute underlying osseous abnormality. 2. Small degenerative retrocalcaneal spur.
--- NOTE | ~2022-05-20 | XR_ITS ---
EXAMINATION: XR FOOT, RIGHT CLINICAL INFORMATION: Right foot pain status post fall. COMPARISON: None available. TECHNIQUE: AP, lateral, and oblique views of the right foot. FINDINGS: Degenerative spurring is seen at the base of the fifth metatarsal laterally. Mild interphalangeal degenerative joint changes are seen. There is no acute fracture or dislocation. The tarsal bones are normally aligned. The soft tissues are unremarkable. XR/XR foot RT 2V IMPRESSION: 1. Degenerative spurring at the base of the fifth metatarsal laterally. No acute fracture. 2. Mild interphalangeal degenerative joint changes.
[2022-05-20 07:47] VITALS: PULSE 97; RESP 18; TEMP 36.6; O2SAT 98; BMI 37.8
--- NOTE | 2022-05-20 08:01 | ED_ITS ---
HPI - General Adult General Chief complaint: Extremity Injury, Lower Stated complaint: fall r foot l knee inj Time Seen by Provider: 05/20/22 08:00 Source: patient Mode of arrival: ambulatory Limitations: no limitations History of Present Illness HPI narrative: Patient is a 61 year old assigned female at with a history of diabetes presenting to the emergency department today with right and left knee pain. Pat mariluz states that tripped and fell yesterday, injuring her left knee and right foot. Patient denies hitting her head in the incident. Patient denies any loss of consciousness from the incident. Patient does not know when her last tetanus shot was. Patient denies any dizziness, lightheadedness, abdominal pain, nausea, vomiting, fever, chills, blurry vision, double vision, loss of vision, chest pain, difficulty breathing, shortness of breath, back pain, night sweats, pain with urination, increased urinary frequency, increased urinary urgency, blood in her urine or stool, syncope or a near syncopal episode, bowel incontinence, bladder incontinence, bowel retention, bladder retention, or any other complaints at this time. Onset (ago): day(s) (1) Location: left (knee) and right (foot) Severity: mild Severity scale (1-10): 2 Quality: aching and dull Pain Consistency: constant Relieving factors: none Exacerbating factors: none Associated symptoms: denies other symptoms Treatments prior to arrival: none Related Data Home Medications Medication Instructions Recorded Confirmed cetirizine 10 mg tablet (Zyrtec) 10 mg PO DAILY PRN Allergy Symptoms 06/02/21 06/02/21 insulin glargine U-300 conc 300 60 unit subcut BID 06/02/21 06/02/21 unit/mL (3 mL) subcutaneous pen (Toujeo Max U-300 SoloStar) insulin lispro 100 unit/mL 20 unit subcut TIDAC 06/02/21 06/02/21 subcutaneous pen (Humalog KwikPen (U-100) Insulin) irbesartan 300 mg tablet 300 mg PO DAILY 06/02/21 06/02/21 Previous Rx's Medication Instructions Recorded topiramate 25 mg sprinkle capsule 25 mg PO BEDTIME #30 caps 06/04/21 cephalexin 500 mg capsule 500 mg PO Q6H 7 days #28 caps 05/20/22 Allergies Allergy/AdvReac Type Severity Reaction Status Date / Time Penicillins Allergy Hives Verified 05/20/22 07:47 From ZANTAC Allergy Unknown ANAPHYLAXIS Uncoded 05/20/22 07:47 Review of Systems Constitutional: Constitutional: Reports no additional constitutional complaints, Denies chills, Denies fever(s) and Denies night sweats Eyes: Eyes: Reports no additional eye complaints, Denies blurry vision, Denies change in vision, Denies diplopia, Denies eye discharge, Denies loss of vision and Denies eye pain ENT: Denies dizziness Cardiovascular: Cardiovascular: Reports no additional cardiovascular complaints, Denies chest pain, Denies lightheadedness, Denies Loss of Consciousness and Denies dyspnea Respiratory: Respiratory: Reports no additional respiratory complaints and Denies dyspnea Gastrointestinal: Gastrointestinal: Reports no additional gastrointestinal complaints, Denies abdominal pain, Denies melena, Denies hematochezia, Denies change in bowel habits and Denies change in stool character Genitourinary: Genitourinary: Denies hematuria, Denies urinary frequency, Denies dysuria, Denies urinary incontinence, Denies urinary hesitancy and Denies urinary urgency Musculoskeletal: Musculoskeletal: Reports no additional musculoskeletal complaints, Denies numbness and Denies tingling Comments: right foot pain and left knee pain Neurologic: Denies dizziness, Denies loss of vision, Denies numbness and Denies tingling Psychiatric: Psychiatric: Reports no additional psychiatric complaints Endocrine: Endocrine: Reports no additional endocrine complaints Hematologic/Lymphatic: Hematologic/Lymphatic: Reports no additional hem atologic/lymphatic complaints Allergic/Immunologic: Allergic/Immunologic: Reports no additional allergic/immunologic complaints PMFSH Past Medical History Attestation statement: The following information was validated with the patient. Source: old records reviewed and nursing notes reviewed Medical History Diabetes HTN (hypertension) Obesity Social History Social History Alcohol intake: never Patient Tobacco Use Status: Never used Tobacco Smoked in Last 30 Days: No Use of substances other than those prescribed or required for medical reasons: No Advance Directives: Yes Advance Directives on File: Yes Advance Directives Date on File: 06/05/21 Patient : No service: No Physical Exam ED Vital Signs: Vital Signs - 24 hr 05/20/22 07:47 05/20/22 09:00 Temperature 98 F Pulse Rate 97 92 Respiratory Rate 18 16 Blood Pressure 145/73 H Pulse Oximetry 98 98 Oxygen Delivery Method Room Air Room Air BMI result Body Mass Index 37.8 Const General: cooperative, no acute distress, alert and awake Nutritional Appearance: well nourished Orientation/consciousness: patient oriented x3 Limitations: no limitations HENMT Head: Yes normal to inspection and Yes atraumatic Ears: hearing grossly normal bilaterally and external ears normal General nose exam: Normal external nose present, no nasal discharge noted and no epistaxis Face and sinus: Yes normal facial exam, No abrasion and No laceration Mouth: Normal oral and palatal mucosa present, no drooling and no muffled voice Eyes General: appearance normal, both eyes and all related structures Periorbital: periorbital findings normal Eyelids: Yes eyelids normal Conjunctivae: conjunctivae normal Pupils: Equal, round and reactive pupils present EOM: EOMs intact bilaterally Neck Neck: Yes normal visual inspection, Yes full ROM and Yes no lymphadenopathy Chest Chest palpation & inspection: normal inspection of the chest Resp Effort & Inspection: normal respiratory effort and able to speak in complete sentences Auscultation: clear to auscultation bilaterally GI Inspection: Yes normal to inspection Palpation (GI): Soft to palpation, not firm, nontender and no guarding Skin Other: small abrasion to the left knee Neuro General: patient oriented x3 and moves all extremities Cranial nerves: Yes Equal, round and reactive pupils present Cognition (Neuro): normal cognition Motor exam (neuro): 5/5 motor strength present throughout Sensory Exam: Normal double simultaneous stimulation for sensation Coordination: [id number] test normal Extrem General: Yes full ROM and Yes capillary refill normal Psych Appearance: grossly normal Mental Status: mental status grossly normal Affect: normal affect Attitude: cooperative Thought process: Normal thought process present Thought content: Normal thought content present Insight: Good insight present (Psych) Medications Administered Discontinued Medications Generic Name Dose Route Start Last Admin Trade Name Freq PRN Reason Stop Dose Admin Diphtheria/Tetanus/Acell Pertussis 0.5 ml 05/20/22 08:54 05/20/22 09:07 Diphth,Pertus(Acell),Tet Adult 0.5 Ml Syringe IM 05/20/22 08:55 Not Given .ONCE ONE Medical Decision Making Medical Decision Making MDM Narrative: Patient is a 61 year old assigned female at with a history of DM presenting to the emergency department today with right foot and left knee pain. Patient's physical exam showed a small abrasion to the left knee with no active bleeding and was otherwise unremarkable. Patient's right foot, right ankle, and left knee x-rays showed no acute process. I explained my physical exam findings as well as all test results to the patient. I answered all questions asked by the patient. Patient was brought up to date on tetanus while in the department. I stressed the importance of the patient taking her medication as prescribed. I stressed the importance of the patient following up with her primary care provider. I stressed the importance of the patient returning to the emergency department immediately if her symptoms were to worsen or if she were to develop any dizziness, shortness of breath, difficulty breathing, chest pain, blurry vision, loss of vision, nausea, vomiting, abdominal pain, fever, chills, back pain, or any other complaints. Patient verbalized agreement and understanding with this treatment plan and discharge. Differential Diagnosis Differential Diagnoses: The differential diagnosis associated with the presentation includes fall, abrasion Independent Interpretation I performed an independent interpretation of an: Plain X-Ray Interpretation: My interpretation is in agreement with the radiologist's impression of these imaging studies. EXAMINATION: XR KNEE, LEFT CLINICAL INFORMATION: Knee pain status post fall.? COMPARISON: None available.? TECHNIQUE: Four views of the left knee. FINDINGS: Minimal medial femoral-tibial and patellofemoral degenerative joint changes are seen. There is no acute fracture or dislocation. No significant joint effusion. The soft tissues are unremarkable.? XR/XR knee LT 4V IMPRESSION: Minimal degenerative joint changes most consistent with osteoarthritis. No acute fracture. Dictated By: Charanjit Murdock MD Signed By: Electronically signed by Charanjit Murdock MD 05/20/22 0850 EXAMINATION: XR FOOT, RIGHT CLINICAL INFORMATION: Right foot pain status post fall.? COMPARISON: None available.? TECHNIQUE: AP, lateral, and oblique views of the right foot. FINDINGS: Degenerative spurring is seen at the base of the fifth metatarsal laterally. Mild interphalangeal degenerative joint changes are seen. There is no acute fracture or dislocation. The tarsal bones are normally aligned. The soft tissues are unremarkable.? XR/XR foot RT 2V IMPRESSION: 1.? Degenerative spurring at the base of the fifth metatarsal laterally. No acute fracture. 2.? Mild interphalangeal degenerative joint changes. Dictated By: Charanjit Murdock MD Signed By: Electronically signed by Charanjit Murdock MD 05/20/22 0847 EXAMINATION: XR ANKLE, RIGHT CLINICAL INFORMATION: Right foot pain status post fall.? COMPARISON: None available.? TECHNIQUE: AP, lateral, and mortise views of the right ankle. FINDINGS: The ankle joint and mortise are intact. There is no acute fracture or dislocation. The tarsal bones are normally aligned. There is a small retrocalcaneal spur. Mild soft tissue swelling is seen.? XR/XR ankle RT 2V IMPRESSION: 1.? Mild soft tissue swelling without acute underlying osseous abnormality. 2.? Small degenerative retrocalcaneal spur. ? Dictated By: Charanjit Murdock MD Signed By: Electronically signed by Charanjit Murdock MD 05/20/22 0878 Discharge Plan Discharge Clinical Impression: Fall, Abrasion Patient Disposition: Home, Self-Care Instructions: Fall Prevention (ED) Additional Instructions: Follow up with your primary care provider. Return to the emergency department immediately if your symptoms worsen or if you develop any dizziness, shortness of breath, difficulty breathing, chest pain, blurry vision, loss of vision, nausea, vomiting, abdominal pain, fever, chills, back pain, or any other complaints. Prescriptions: New cephalexin 500 mg capsule 500 mg PO Q6H 7 Days Qty: 28 0RF No Action irbesartan 300 mg Tablet 300 mg PO DAILY insulin lispro [Humalog KwikPen Insulin] 100 unit/mL insulin pen 20 unit subcut TIDAC Toujeo Max U-300 SoloStar 300 unit/mL (3 mL) insulin pen 60 unit subcut BID cetirizine [Zyrtec] 10 mg Tablet 10 mg PO DAILY PRN (Reason: Allergy Symptoms) topiramate 25 mg capsule, sprinkle 25 mg PO BEDTIME Qty: 30 0RF Referrals: Lydia Vera MD [Primary Care Provider] - Stand Alone Forms: Work/School Release Print Language: Zambian
[2022-05-20 09:00] VITALS: BP 145/73; PULSE 92; RESP 16; O2SAT 98
== END 2022-05-20 09:18 | disposition home or self-care (01) ==
PROVIDERS: Emergency Provider Emergency Medicine; PCP Internal Medicine Endocrinology, Diabetes & Metabolism
DX: S90.811A Abrasion, right foot, initial encounter (principal); M79.605 Pain in left leg; M79.604 Pain in right leg; W01.10XA Fall on same level from slipping, tripping and stumbling with subsequent striking against unspecified object, initial encounter; X58.XXXA Exposure to other specified factors, initial encounter; Y93.9 Activity, unspecified; Y92.9 Unspecified place or not applicable; Y99.9 Unspecified external cause status; Z79.899 Other long term (current) drug therapy
CPT/HCPCS: 73564; 73600; 73620; 99283; 99284

== ENCOUNTER 2024-01-14 08:16 | Emergency (ER) | payer OTHER, SELFPAY ==
--- NOTE | ~2024-01-14 | XR_ITS ---
EXAMINATION: XR CHEST CLINICAL INFORMATION: sob COMPARISON: Chest radiograph 05/21/2019. TECHNIQUE: Frontal view of the chest was obtained. FINDINGS: Lungs are hypoinflated. There are probably small bilateral pleural effusions. There is bibasilar atelectasis. An infiltrate cannot be excluded in the retrocardiac region. The heart size is normal. There is no upper zone redistribution. Bilateral suture angles are present in each humeri. XR/XR chest 1V IMPRESSION: Hypoinflated lungs with small bilateral pleural effusions and bibasilar atelectasis. An infiltrate cannot be excluded in the retrocardiac region. Electronically signed by: Tra Cifuentes MD 01/14/2024 07:37 PM EST
[2024-01-14 08:19] VITALS: BP 161/92; PULSE 101; RESP 16; TEMP 36.8; O2SAT 97; BMI 37.1
--- NOTE | 2024-01-14 08:23 | ECG_ITS ---
Test Reason : sob Blood Pressure : / mmHG Vent. Rate : 092 BPM Atrial Rate : 092 BPM P-R Int : 160 ms QRS Dur : 098 ms QT Int : 408 ms P-R-T Axes : 053 -12 -05 degrees QTc Int : 504 ms Normal sinus rhythm Low voltage QRS Cannot rule out Anterior infarct , age undetermined Abnormal ECG When compared with ECG of 02-JUN-2021 10:14, Nonspecific T wave abnormality, worse in Inferior leads Nonspecific T wave abnormality now evident in Lateral leads Referred By: Generic ED Physician Electronically Signed By:RAYNE WATERS
[2024-01-14 08:41] LABS: MANUAL DIFF FLAG NO
[2024-01-14 08:43] LABS: Basophils Absolute Auto 0.1 X10*3/uL (0.0-0.2); Basophils Percent Auto 0.8 % (0-2); Eosinophils Absolute Auto 0.2 X10*3/uL (0.0-0.4); Hematocrit 39.5 % (37.0-47.0); Imm Gran Abs Auto 0.03 X10*3/uL (0.00-0.03); Imm Gran Pct Auto 0.4 % (0.0-0.4); Lymphocytes Absolute Auto 1.4 X10*3/uL (1.2-4.9); Mean Corpuscular HGB Conc 32.9 g/dl (31.0-35.0); Mean Corpuscular Hemoglobin 28.3 pg (27.0-33.0); Mean Corpuscular Volume 86.1 fL (80.0-98.0); Mean Platelet Volume 9.2 fL (9.4-12.3); Monocytes Absolute Auto 0.5 X10*3/uL (0.1-1.2); Monocytes Percent Auto 6.8 % (2-11); Neutrophils Absolute Auto 5.4 x10*3/uL (2.0-8.3); Platelet Count 224 X10*3/uL (160-400); Red Blood Count 4.59 X10*6/uL (4.20-5.50); Red Cell Distribution Width 14.1 % (11.0-16.0); White Blood Count 7.5 X10*3/uL (4.8-10.8)
[2024-01-14 08:55] LABS: Anion Gap 12 (12-20); Blood Urea Nitrogen 16 mg/dL (9-16); Carbon Dioxide 22 mmol/L (22-29); Chloride 111 mmol/L (96-108); Creatinine Clr Calc Pharmacy 77.1; Estimated Glomerular Filt Rate > 60; Glucose Random 174 mg/dL (60-115); Potassium 4.2 mmol/L (3.3-5.1); Sodium 141 mmol/L (135-145)
[2024-01-14 09:02] LABS: Troponin-I High Sensitivity 3.8 ng/L (<3.5-17.0)
[2024-01-14 09:03] LABS: B Type Natriuretic Peptide 500 pg/mL (<100)
--- NOTE | 2024-01-14 12:48 | ED.SOB ---
HPI - SOB/Dyspnea General Chief Complaint: Dyspnea Stated Complaint: SOB Time Seen by Provider: 01/14/24 12:07 Source: patient Mode of arrival: ambulatory Limitations: no limitations History of Present Illness ED Provider: Dr. Renetta Reid HPI Narrative: Patient comes to the emergency room complaining of shortness of breath with exertion. Patient states that for the last week she has a URI, states that she is coughing but overall feeling better. However, she noticed that for the last few days she gets significantly short of breath when she walks. Denies any chest pain. Patient states that 4 months ago she had an TX, got 4 stents. Related Data Home Medications ?Medication ?Instructions ?Recorded ?Confirmed cetirizine 10 mg tablet (Zyrtec) 10 mg PO DAILY PRN Allergy Symptoms 06/02/21 06/02/21 insulin glargine U-300 conc 300 60 unit subcut BID 06/02/21 06/02/21 unit/mL (3 mL) subcutaneous pen (Toujeo Max U-300 SoloStar) insulin lispro 100 unit/mL 20 unit subcut TIDAC 06/02/21 06/02/21 subcutaneous pen (Humalog KwikPen (U-100) Insulin) irbesartan 300 mg tablet 300 mg PO DAILY 06/02/21 06/02/21 Previous Rx's ?Medication ?Instructions ?Recorded topiramate 25 mg sprinkle capsule 25 mg PO BEDTIME #30 caps 06/04/21 cephalexin 500 mg capsule 500 mg PO Q6H 7 days #28 caps 05/20/22 furosemide 20 mg tablet (Lasix) 20 mg PO DAILY #14 tabs 01/14/24 Allergies Allergy/AdvReac Type Severity Reaction Status Date / Time morphine Allergy Hives Verified 01/14/24 08:22 Penicillins Allergy Hives Verified 05/20/22 07:47 From ZANTAC Allergy Unknown ANAPHYLAXIS Uncoded 05/20/22 07:47 Review of Systems Review of Systems: Constitutional : No Weight loss, No Fever, No Chills, No Night Sweats, No Fatigue, No Malaise ENT/Mouth : No Hearing loss, No Ear Pain, No Nasal Congestion, No Sinus Pain, No Hoarseness, No sore throat, No Rhinorrhea, No Swallowing Difficulty Eyes: No Eye Pain, No Swelling, No Redness, No Foreign Body, No Discharge, No Vision Changes Cardiovascular : No Chest Pain, No SOB, complaining of dyspnea with exertion, no edema Respiratory : No Cough, No Sputum, No Wheezing, No Smoke Exposure, No Dyspnea Gastrointestinal : No Nausea, No Vomiting, No Diarrhea, No Constipation, No abdominal Pain, No Hematochezia, No Melena Genitourinary : no irregular bleeding, No Dysuria, No Urinary Frequency, No Hematuria, No Urinary Incontinence, No Urgency, No Flank Pain, No Urinary Flow Changes, No Hesitancy Musculoskeletal : No joint pain, No Myalgias, No Joint Swelling Skin : No Skin Lesions, No rash Neuro : No Weakness, No Numbness, No Paresthesias, No Loss of Consciousness, No Dizziness, No Headache Psych : No Anxiety/Panic, No Depression, No SI/HI/AH/VH, No Social Issues, Heme/Lymph: No Bruising, No Bleeding,No Lymphadenopathy Endocrine : No Polyuria, No Polydipsia, No Temperature Intolerance PMFSH Past Medical History Medical History Obesity Diabetes HTN (hypertension) Social History Social History Alcohol intake: never Patient Tobacco Use Status: Never used Tobacco Smoked in Last 30 Days: No Use of substances other than those prescribed or required for medical reasons: No Advance Directives: Yes Advance Directives on File: Yes Advance Directives Date on File: 06/05/21 service: No Physical Exam Vital Signs: Vital Signs: Last Vital Signs Temp 98.3 F 01/14/24 08:19 Pulse 101 H 01/14/24 08:19 Resp 16 01/14/24 08:19 BP 161/92 H 01/14/24 08:19 Pulse Ox 98 01/14/24 13:05 O2 Del Method Room Air 01/14/24 08:19 BMI result Body Mass Index 37.1 Const: Other: Appearance: Alert. Oriented X3. No acute distress. Eyes: Pupils equal, round and reactive to light. ENT: Pharynx normal. Neck: Normal inspection. Neck supple. No lymph nodes noted. No crepitus CVS: Normal heart rate and rhythm. Pulses normal. Normal S1 and S2 Respiratory: No respiratory distress. Breath sounds normal. No Wheezing. No rales Abdomen: Soft and nontender. No rigidity. No distention. Skin: Skin warm and dry. Normal skin color. Normal skin turgor. Extremities: No lower extremity edema. No Lacerations. No Rash Neuro: Oriented X 3. No motor deficit. No sensory deficit. Moving all extremities. No slurred speech. CN 2 through 12 grossly intact Psych: calm, cooperative, normal affect Medical Decision Making Medical Decision Making [facility] Narrative: -my interpretation of: Normal rhythm, heart rate 92, no ST segment depression elevation My interpretation of labs, normal hematology and chemistry, troponin normal, BNP 500. A previous BNP is for comparison available. -my interpretation of chest x-ray, vascular congestion without significant pulmonary edema -since patient had the TX 4 months ago, patient is on Entresto, metoprolol, Plavix -ambulation trial: Patient's oxygen saturation remained 94% and above, no significant shortness of breath or chest pain or dizziness. -I discussed the patient with Dr. Perez, patient has already been given 1 dose of Lasix 40 mg. There is no need to keep the patient in the hospital since she is otherwise stable. Patient agrees with plan, will call her dental scheduling coordinator today at [facility] to schedule an appointment. Differential Diagnosis Differential Diagnoses: The differential diagnosis associated with the presentation includes (New onset CHF, pneumonia, viral URI) Admission/Observation Consideration of admission/observation: Escalation of care including admission/observation considered (Given patient's recent history of TX and new onset CHF, admission was considered.) Lab Data [facility] Lab Attestation statement: I reviewed the patient's lab results. 01/14/24 08:36 01/14/24 08:36 Labs: Lab Results 01/14/24 Range/Units 08:36 WBC 7.5 (4.8-10.8) X10*3/uL RBC 4.59 (4.20-5.50) X10*6/uL Hgb 13.0 (12.0-16.0) g/dl Hct 39.5 (37.0-47.0) % MCV 86.1 (80.0-98.0) fL MCH 28.3 (27.0-33.0) pg MCHC 32.9 (31.0-35.0) g/dl RDW 14.1 (11.0-16.0) % Plt Count 224 (160-400) X10*3/uL MPV 9.2 L (9.4-12.3) fL Immature Gran % (Auto) 0.4 (0.0-0.4) % Neut % (Auto) 72.0 (45-73) % Lymph % (Auto) 18.0 L (20-40) % Jackson % (Auto) 6.8 (2-11) % Eos % (Auto) 2.0 (0-4) % Baso % (Auto) 0.8 (0-2) % Lymph # (Auto) 1.4 (1.2-4.9) X10*3/uL Jackson # (Auto) 0.5 (0.1-1.2) X10*3/uL Eos # (Auto) 0.2 (0.0-0.4) X10*3/uL Baso # (Auto) 0.1 (0.0-0.2) X10*3/uL Abs Immat Gran (auto) 0.03 (0.00-0.03) X10*3/uL Absolute Neuts (auto) 5.4 (2.0-8.3) x10*3/uL Absolute Nucleated RBC 0.000 (0.0-0.012) X10*3/uL Nucleated RBC % (auto) 0.0 (0.0-0.2) /100WBC Sodium 141 (135-145) mmol/L Potassium 4.2 (3.3-5.1) mmol/L Chloride 111 H (96-108) mmol/L Carbon Dioxide 22 (22-29) mmol/L Anion Gap 12 (12-20) BUN 16 (9-16) mg/dL Creatinine 0.86 (0.5-1.4) mg/dL Estim Creat Clear Calc 77.1 Estimated GFR > 60 Random Glucose 174 H (60-115) mg/dL Calcium 9.0 D (8.4-10.2) mg/dL Troponin I High Sens 3.8 (<3.5-17.0) ng/L B-Natriuretic Peptide 500 H (<100) pg/mL Independent Interpretation I performed an independent interpretation of an: Plain X-Ray Critical Care Time Critical Care Time Critical Care Time: Yes Total Critical Care Time: 60 Attestation: I have personally provided critical care time. Time includes review of lab data, radiology results, discussion with consultants, and monitoring for potential decompensation. Intervention performed as documented. Discharge Plan Discharge Clinical Impression: Congestive heart failure Patient Disposition: Home, Self-Care Instructions: Heart Failure (ED), Heart Healthy Diet (ED), Fluid Restriction (ED) Additional Instructions: Please follow-up with your primary care physician and dental scheduling coordinator tomorrow. If you have any worsening or new symptoms, please return to the emergency room or call 911 Prescriptions: New furosemide [Lasix] 20 mg tablet 20 mg PO DAILY Qty: 14 0RF No Action irbesartan 300 mg Tablet 300 mg PO DAILY insulin lispro [Humalog KwikPen Insulin] 100 unit/mL insulin pen 20 unit subcut TIDAC Toujeo Max U-300 SoloStar 300 unit/mL (3 mL) insulin pen 60 unit subcut BID cetirizine [Zyrtec] 10 mg Tablet 10 mg PO DAILY PRN (Reason: Allergy Symptoms) topiramate 25 mg capsule, sprinkle 25 mg PO BEDTIME Qty: 30 0RF cephalexin 500 mg capsule 500 mg PO Q6H 7 Days Qty: 28 0RF Print Language: Armenian
[2024-01-14 13:05] VITALS: O2SAT 98
[2024-01-14 13:44] VITALS: BP 137/69
[2024-01-14] MEDS: Furosemide 40 MG TABLET PO (13:44)
[2024-01-14 13:47] VITALS: BP 137/69; PULSE 78; RESP 20; TEMP 36.6; O2SAT 98
== END 2024-01-14 13:47 | disposition home or self-care (01) ==
PROVIDERS: Emergency Provider Emergency Medicine; PCP Physician Assistant
DX: I11.0 Hypertensive heart disease with heart failure (principal); I50.9 Heart failure, unspecified; R06.02 Shortness of breath; E11.9 Type 2 diabetes mellitus without complications; Z79.4 Long term (current) use of insulin; Z79.899 Other long term (current) drug therapy
CPT/HCPCS: 36415; 71045; 80048; 83880; 84484; 85025; 93005; 99283; 99284

== ENCOUNTER → 2024-01-14 08:23 | Outpatient (BNV) | payer OTHER, SELFPAY | PROVIDERS: Emergency Provider Emergency Medicine; PCP Physician Assistant; Visit Provider Internal Medicine | DX: R94.31 Abnormal electrocardiogram [ECG] [EKG] (principal) | CPT/HCPCS: 93010 ==

== ENCOUNTER 2024-11-05 08:50 | Outpatient (AMB) | payer OTHER, SELFPAY ==
--- NOTE | 2024-11-05 08:56 | HO.SPINEOV ---
Intake Visit Reasons: lumbar radiculopathy Intake Note: Ms. Sung is here today c/o low back pain. MRI done @ [facility]. Allergies morphine Allergy (Verified 01/14/24 08:22) Hives Penicillins Allergy (Verified 05/20/22 07:47) Hives From ZANTAC Allergy (Unknown, Uncoded 05/20/22 07:47) ANAPHYLAXIS Assessment & Plan Assessment & Plan (1) Lumbar stenosis with neurogenic claudication: Code(s): M48.062 - Spinal stenosis, lumbar region with neurogenic claudication Category: Medical Plan Dear [] Thank you for referring [] to the office today with a chief complaint of low back pain and bilateral leg pain. HPI: This 63-year-old female comes in the office to see me with 2 complaints. The 1st 1 is a constant pain that sits in the hips and groins. She calls this a pelvic pain. Second complaint is back pain that radiates down her legs with walking and standing. Sitting improves. Leaning forward also radiates his symptoms. The latter symptom is progressing. She underwent multiple physical therapy visits. The last sessions were over a year ago. She had multiple cortisone injections with initially helped but currently are not longer effective. She can not take anti-inflammatory drugs due to oral anticoagulants. She denies weakness. She does have tingling in her feet which she contributes to polyneuropathy from diabetes. The following conservative treatment options were tried without success antiinflammatories, tylenol, physician guided home exercise plan, cortisone shots PMH: MO with for stent placement, diabetes (last A1c 7) Medications: Furosemide, insulin, Jardiance, Mounjaro, Eliquis, Entresto,, isosorbide, Toujeo, pantoprazole Allergies: Morphine and penicillin gives her hives Social history: Lives alone. Takes care of her mother. 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 Nonsmoker Physical Exam: Pleasant female. Height 5'4 weight 213 lb. Flexion of the lumbar spine produces pain radiating down posterior side of both legs. Motor exam is intact 5/5. There is subjective tingling of the feet. SI joint provocative tests are negative. Radiological Studies: MRI done at [facility] on 09/21/2024 shows status post right L5-S1 laminotomy. There is moderate L3-4 central spinal stenosis wiith a foraminal disc bulge at this level compromise the left L3 nerve root. There is severe L5-S1 degenerative disc disease and [id number]-[id number]-mukdhp right L5 foraminal stenosis. Impression/Plan: This patient is primarily suffering from neurogenic claudication due to L3-4 moderate central spinal stenosis. The chronic back pain that radiates into the groin and pelvis maybe associated with the L5-S1 degenerative disc disease. I offered her a L3-4 lumbar laminotomy to treat the neurogenic claudication. I gave her 75% success rate. We briefly discussed fusion of the L5-S1 segment but I am less confident that this will address her chronic pain. She will get cardiology clearance. The main question is if we can stop the Eliquis 3 days prior to surgery and if the aspirin can be stopped as well. The surgery will proceed if we have to continue the aspirin. She is scheduled for 12/16/2024. I also gave her instructions on when to stop Jardiance and Mounjaro preoperatively. Thank you for allowing me to participate in your patients care. total time spent was 50 minutes in counseling ,coordination of plan, personal review of imaging, surgical decision making and subsequent plan Zac May MD, PhD [facility] Trained Neurosurgeon Director, [facility] Coding Level of Care Code New Pt Level 4 (95462) Diagnoses Lumbar stenosis with neurogenic claudication M48.062
--- OUTSIDE RECORDS SUMMARY | 2024-11-05 09:33 | XMS_ITS | Encounter Summary ---
Author Organization [facility] Address [address] [place] [address] Phone Care Team Providers Care Lathe Hand Name Role Phone Lydia Vera MD Primary Care Prov ider Reason for Referral * Physical Therapy (Routine) - Closed Specialty Diagnoses / Procedures Referred By Contac t Referred To Contact Physical Therapy Diagnoses Encounter for rehabilitation System, Provider Not In, [facility] [id number] [place] [address] Phone: tel: Referral ID Status Reason Start Date Expiration Date Visits Re quested Visits Authorized [id number] Closed 02/17/2017 02/16/2018 35 35 Encounter Details Date Type Department Care Team (Latest Contact Info) Description 01/21/2017 Transcribe Orders [facility] [address] [place] [address] Bradley Bianchi MD [address] [place] [address] Encounter for rehabilitation (Primary Dx) Social History Tobacco Use Types Packs/Day Years Used Date Smoking Tobacco: Never Assessed Comments Unknown Sex and Gender Information Value Date Recorded Sex Assigned at Not on file Legal Sex Female 1:51 PM EST Gender Identity Not on file Sexual Orientation Not on file documented as of this encounter Plan of Treatment Upcoming Encounters Date Type Department Care Team (Late st Contact Info) Description 01/24/2025 7:40 AM EST Office Visit [facility] [address], [address] [place] [address] Octavio Giron MD [address] [facility], [address] [place] [address] [email or web address] Scheduled Referrals Name Type Priority Associated Diagnoses Orde r Schedule Ambulatory referral to [facility] Physical Therapy Outpatient Referral Routine Encounter for rehabilitation Ordered: 01/21/2017 documented as of this encounter Visit Diagnoses Diagnosis Encounter for rehabilitation- Primary documented in this encounter Care Teams Lathe Hand Relationship Specialty Start Date End Date Lydia Vera MD [address] [place] [address] [address] PCP - General Endocrinology 01/14/17 documented as of this encounter Additional Source Comments The information contained in this document represents components of the legal health record. It is not the complete legal health record.[facility]
--- OUTSIDE RECORDS SUMMARY | 2024-11-05 09:33 | XMS_ITS | Encounter Summary ---
Author Organization [facility] Address [address] [facility] [address] [place] [address] Phone Care Team Providers Care Camelid Fiber Sorter Name Role Phone Lydia Vera MD Primary Care Prov ider Encounter Details Date Type Department Care Team (Late st Contact Info) Description 02/02/2024 Procedure Pass [facility] [address] [place], [place] [id number] Social History Tobacco Use Types Packs/Day Years Used Date Smoking Tobacco: Never Smokeless Tobacco: Never Education Answer Date Recorded Are you interested in more education? Not on terra e 06/14/2022 Are you concerned about learning? Not on file 06/14/2022 No 06/14/2022 No 06/14/2022 Digital Access Answer Date Recorded No 07/13/2022 No 07/13/2022 Reliable internet access at home? Not on file 07/13/2022 Device with a working camera? Not on file Comments Unknown Sex and Gender Information Value Date Recorded Sex Assigned at Not on file Legal Sex Female 1:51 PM EST Gender Identity Not on file Sexual Orientation Not on file documented as of this encounter Plan of Treatment Upcoming Encounters Date Type Department Care Team (Late st Contact Info) Description 01/24/2025 7:40 AM EST Office Visit [facility] [address] [place] [address] [address]rd Floor, [address] [place], [place] [phone] Octavio Giron MD [address] [facility], [address] [place] [address] documented as of this encounter Visit Diagnoses Not on filedocumented in this encounter Care Teams Camelid Fiber Sorter Relationship Specialty Start Date End Date Lydia Vera MD [address] [place] [address] [place] [address] PCP - General Endocrinology 01/14/17 documented as of this encounter Additional Source Comments The information contained in this document represents components of the legal health record. It is not the complete legal health record.[facility]
--- OUTSIDE RECORDS SUMMARY | 2024-11-05 09:33 | XMS_ITS | Encounter Summary ---
Author Organization [facility] Address [address] [facility] [address] [place] [address] Phone Care Team Providers Care Shellfish Sorter Name Role Phone Lydia Vera MD Primary Care Prov ider Encounter Details Date Type Department Care Team (Late st Contact Info) Description 10/06/2023 Procedure Pass Echo Lab [address] [place], [place] [phone] Social History Tobacco Use Types Packs/Day Years Used Date Smoking Tobacco: Never Assessed Education Answer Date Recorded Are you interested [...] Description 01/24/2025 7:40 AM EST Office Visit [facility] [address] [place] [address] [address]rd Floor, [address] [place], [place] [phone] Octavio Giron MD [address] [facility] [place], [address] [address] documented as of this encounter Visit Diagnoses Not on filedocumented in this encounter Care Teams Shellfish Sorter Relationship Specialty Start Date End Date Lydia Vera MD [address] [place] [address] [place] [address] PCP - General Endocrinology 01/14/17 documented as of this encounter Additional Source Comments The information contained in this document represents components of the legal health record. It is not the complete legal health record.[facility]
--- OUTSIDE RECORDS SUMMARY | 2024-11-05 09:33 | XMS_ITS | Clinical Summary ---
Author Organization [facility] Address [address] [facility] [address] [place] [address] Phone Care Team Providers Care Seed Laboratory Technician Name Role Phone Lydia Vera MD Primary Care Prov ider Allergies Active Allergy Reactions Criticality Noted Date Comments Dulaglutide Nausea Only 10/06/2023 Metformin Diarrhea 10/06/2023 Morphine 10/06/2023 Penicillins Hives,Rash Low 10/06/2023 Ranitidine Hcl Fever Medium 10/06/2023 Medications albuterol 90 mcg/actuation inhaler as needed. Active atorvastatin (LIPITOR) 80 MG tablet Take by mouth. Activ e insulin glargine U-300 conc (TOUJEO MAX U-300 SOLOSTAR) 300 unit/mL (3 mL) InPn Active UNIFINE PENTIPS PLUS 31 gauge x 05/02 Ndle 07/04/19 24 Active furosemide (LASIX) 20 MG tablet Take 1 tablet by mouth every morning. 01/26/20 24 Active HUMALOG KWIKPEN INSULIN 100 unit/mL kwikpen INJECT 22-30 UNITS SUBCUTANEOUSLY BEFORE MEALS THREE TIMES A DAY 12/15/19 24 Active sacubitriL-vals kevin (ENTRESTO) 49-51 mg per tablet Take 1 tablet by mouth 2 (two) times a day. 180 tablet 3 02/02/20 24 Active carvedilol (COREG) 3.125 MG tablet Take 1 tablet (3.125 mg total) by mouth 2 (two) times a day with meals. 180 tablet 3 02/02/20 24 Active isosorbide mononitrate (IMDUR) 120 MG 24 hr tablet Take 1 tablet (120 mg total) by mouth daily. 90 tablet 3 05/20/19 25 Active MOUNJARO 5 mg/0.5 mL PnIj subcutaneous pen INJECT 5MG SUBCUTANANEOUSLY ONCE A WEEK Active aspirin 81 MG EC tablet Take 1 tablet (81 mg total) by mouth daily. 90 tablet 3 07/27/19 25 Active ELIQUIS 5 mg tablet Take 1 tablet (5 mg total) by mouth 2 (two) times a day. 60 tablet 11/02/19 25 Active empagliflozin (JARDIANCE) 10 mg tablet Take 1 tablet (10 mg total) by mouth daily. 30 tablet 5 11/02/19 25 Active pantoprazole (PROTONIX) 20 MG tablet Take 1 tablet (20 mg total) by mouth daily. 30 tablet 11/02/19 25 Active ELIQUIS 5 mg tablet 5 mg 2 (two) times a day. 025 Disconti nued(Reo rder) empagliflozin (JARDIANCE) 10 mg tablet Take by mouth. 025 Disconti nued(Reo rder) pantoprazole (PROTONIX) 20 MG tablet Take 1 tablet (20 mg total) by mouth daily. 30 tablet 11 09/21/19 25 025 Disconti nued(Reo rder) Active Problems No known active problems Encounters Date Type Department Care Team Description 10/28/2024 Refill [facility] [address], [address] [place] [address] Octavio Giron MD Medication Refill 09/20/2024 Refill [facility] [address], [address] [place] [address] Citlaly Diane MA Medication Refill from Last 3 Months Social History Tobacco Use Types Packs/Day Years [...] on file Sexual Orientation Not on file Last Filed Vital Signs Vital Sign Reading Time Taken Comments Blood Pressure 118/64 07/26/2024 7:45 AM EDT Pulse 84 07/26/2024 7:45 AM EDT Temperature - - Respiratory Rate - - Oxygen Saturation 97% 07/26/2024 7:45 AM EDT Inhaled Oxygen Concentration - - Weight 96.2 kg (212 lb) 07/26/2024 7:45 AM EDT Height - - Body Mass Index - - Plan of Treatment Upcoming Encounters Date Type Department Care Team (Late st Contact Info) Description 01/24/2025 7:40 AM EST Office Visit [facility] [address] [place] [address] [address]rd Floor, [address] [place], [place] [phone] Octavio Grion MD [address] [facility], [address] [place] [address] Health Maintenance Due Date Last Done Comments Adult Td,Tdap Booster 1961 LIPID PANEL 1961 DEPRESSION SCREENING 1973 HEPATITIS C SCREENING 11/30/1979 HIV ONE-TIME SCREENING (18-6 5 YEARS) 11/30/1979 PAP SMEAR 1982 MAMMOGRAM 2001 COLOGUARD 2006 COLONOSCOPY 2006 COLORECTAL CANCER SCREENING 2006 FIT TEST 2006 FOBT 2006 SIGMOIDOSCOPY 2006 VIRTUAL COLONOSCOPY 2006 PNEUMOCOCCAL VACCINES (50+ years) (1 of 1 - PCV) 11/30/2011 ZOSTER VACCINES (1 of 2) 11/30/2011 RSV VACCINE (1 - Risk 60-74 years 1-dose series) 2021 INFLUENZA VACCINE (#1) 2024 03/20/2019 COVID-19 VACCINE (3 - 2024-2 6 season) 2024 05/19/2020, 04/21/2020 BLOOD PRESSURE 01/25/2025 07/26/2024 CREATININE LEVEL 02/12/2025 02/13/2024 SMOKING STATUS SCREENING (On ce After 26 Yrs) Completed 07/26/2024 HEPATITIS A VACCINES Aged Out No long er eligible based on patient's age to complete this topic HIB VACCINES Aged Out No longer eligi ble based on patient's age to complete this topic MENINGOCOCCAL VACCINES (ACWY) Aged Out No longer eligible based on patient's age to complete this topic MENINGOCOCCAL VACCINES (B) Aged Out N o longer eligible based on patient's age to complete this topic Medical Devices Not on file Procedures Procedure Name Priority Date/Time Associated Diagnosis Comments BASIC METABOLIC PANEL Routine 02/13/2024 1:09 PM EST Ischemic cardiomyopathy from Last 3 Months or Most Recently Relevant to Health Maintenance Results * (ABNORMAL) Basic metabolic panel (02/13/2024 1:09 PM EST) SODIUM 142 133 - 146 mmol/L [facility] CHLORIDE 106 96 - 108 mmol/L [facility] POTASSIUM 3.9 3.3 - 5.1 mmol/L [facility] CO2 26 21 - 35 mmol/L [facility] BUN 15 6 - 19 mg/dL [facility] CREATININE 0.70 0.5 - 1.5 mg/dL [facility] GLUCOSE 175(H) 70 - 99 mg/dL [facility] CALCIUM 9.4 8.4 - 10.3 mg/dL [facility] EGFR 98 >59 mL/min/1.7 3m2 [facility] Comment:Estimated glomerular filtration rate calculated using the CKD-EPI refit equation. ANION GAP 14 10 - 20 mmol/L [facility] Blood 02/13/2024 1:09 PM EST 02/13/2024 1:19 PM EST us Octavio Giron MD LAB BLOOD ORDERABLES Final Re sult [facility] [address] [place] [address] from Last 3 Months or Most Recently Relevant to Health Maintenance Insurance [facility] [address] [place] [address] [facility] [address] [place] [place] [address] [place] [address] [place] [address] [place], [place] [address] [place], [place] [address] Care Teams Seed Laboratory Technician Relationship Specialty Start Date End Date Lydia Vera MD [address] [place] [address] [place] [address] PCP - General Endocrinology 01/14/17 Additional Source Comments The information contained in this document represents components of the legal health record. It is not the complete legal health record.[facility]
--- OUTSIDE RECORDS SUMMARY | 2024-11-05 09:33 | XMS_ITS | Encounter Summary ---
Author Organization [facility] Address [address] [facility] [address] [place] [address] Phone Care Team Providers Care Booster Plant Operator Name Role Phone Lydia Vera MD Primary Care Prov ider Reason for Visit * Reason Onset Date Comments Medication Refill 10/28/2024 Encounter Details Date Type Department Care Team (Late st Contact Info) Description 10/28/2024 Refill [facility] [address] [place] [address] [address]rd Floor, [address] [place] [address] Octavio Giron MD [address] [facility], [facility] [address] [place] [address] [email or web address] Medication Refill Social History Tobacco Use Types Packs/Day Years [...] on file documented as of this encounter Progress Notes * Jeane Price MA - 10/28/2024 2:21 PM EDT rx verified. documented in this encounter Plan of Treatment Upcoming Encounters Date Type Department Care Team (Late st Contact Info) Description 01/24/2025 7:40 AM EST Office Visit [facility] [address] [place] [address] [address] Floor, [address] [place] [address] Octavio Giron MD [address] [facility], [address] [address] [email or web address] documented as of this encounter Visit Diagnoses Not on filedocumented in this encounter Care Teams Booster Plant Operator Relationship Specialty Start Date End Date Lydia Vera MD [address] [place] [address] [place] [address] PCP - General Endocrinology 01/14/17 documented as of this encounter Additional Source Comments The information contained in this document represents components of the legal health record. It is not the complete legal health record.[facility]
== END 2024-11-05 09:44 | disposition home or self-care (01) ==
LOC: HO.HNS 08:51
PROVIDERS: Referring Provider Physical Medicine & Rehabilitation; Visit Provider Neurological Surgery
DX: M48.062 Spinal stenosis, lumbar region with neurogenic claudication (principal)
CPT/HCPCS: 99204

== ENCOUNTER → 2024-12-10 13:10 | Outpatient (BNV) | payer OTHER, SELFPAY | PROVIDERS: PCP Internal Medicine; Visit Provider Internal Medicine Cardiovascular Disease | DX: R94.31 Abnormal electrocardiogram [ECG] [EKG] (principal); Z01.810 Encounter for preprocedural cardiovascular examination | CPT/HCPCS: 93010 ==

== ENCOUNTER → 2024-12-16 10:53 | Day surgery (SDC) | payer OTHER, SELFPAY ==
--- OUTSIDE RECORDS SUMMARY | 2023-08-18 04:00 | XMS_ITS ---
Author Organization 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 Primary Care Provid er Oumou Frank Unavailable [phone] REASON FOR VISIT Annual (YELLOW FORM DONE) Encounters Encounter Location Date Provider Diagnosis [facility] [employer] [address] [address] 08/18/2023 Oumou Slade Plan Of Treatment No Information Progress Notes * MARIO GERMAINB:1960 (63 yo F)Acc No.[id number]:08/18/2023 PROGRESS NOTES Patient: KILEY WILLOUGHBYA Appointment Provider: Elan Slade M.D. :1960 A ge:62 Y S ex:Female Date:08/18/2023 Address:[address] [place], [place] [id number] Pcp:NINOSKA BOYER M.D. Subjective: * Chief Complaints: * 1 . Annual (YELLOW FORM DONE). * Medical History: Objective: * Vitals: Assessment: Plan: * Treatment: * Images: Billing Information: * Visit Code: * Procedure Codes: * Electronic signature of Rebecca Slade MD on 11/18/2024 at 12:24 PM EDT Sign off status: Pending * Appointment Provider: Elan Slade M.D. Date: 0 08/18/2023 Generated for Printi ng/Faxing/eTransmitting on: 1 12:24 PM EDT
--- OUTSIDE RECORDS SUMMARY | 2024-11-18 12:24 | XMS_ITS | Patient Health Record ---
Author Organization [facility] Address [address] [place] [address] Care Team Providers Care Cashier Receptionist Name Role Phone PRATIMA BOYER M.D., NINOSKA Primary Care Provid er Unavailable Oumou Slade Unavailable [phone] Allergies Allergen (clinical drug ingredient) Drug/Non Drug Allergy documented on EMR Reaction Allergy Type Onset Date Status Information temporarily unavailable ZANTAC Fever Drug Allergy Active Reason For Referral No Information Medications Medication SIG (Take, Route, Fr equency, Duration) Notes Start Date End Date Status Vitamin D 2000 UNIT 1 tablet Orally Once a day Active Jardiance 10 MG 1 tablet Orally Once a day; Duration: 30 day(s) Active Glimepiride 4 MG Oral; Duration: 90 Active Irbesartan 300 MG 1 tablet Orally Once a day Active HumaLOG 100 UNIT/ML Subcutaneous Sliding Scale Active Social History Tobacco Use: Social History Observation Description Date Details (start date - stop date) Never Smoker NA - NA Tobacco Use/Smoking Question Answer Notes Are you a nonsmoker Alcohol Screen (Audit-C) Question Answer Notes Did you have a drink containing alcohol in the p ast year? No Points 0 Interpretation Negative Sexual History Question Answer Notes Had sex in the past 12 months (vaginal, oral, or anal)? No Tobacco use other than smoking: Question Answer Notes Are you an other tobacco user? No Problems Problem Type SNOMED Code ICD Code Onset Dates Problem Status W/U Status Risk Notes Problem Postmenopausal atrophic vaginitis (54324034) Postmenopausal atrophic vaginitis (N95.2) Active confirmed Problem Mild cervical dysplasia (840665752) Mild cervical dysplasia (N87.0) Active confirmed Problem Intramural leiomyoma of uterus (11013034) Intramural leiomyoma of uterus (D25.1) Active confirmed Problem Type II diabetes mellitus without complication (480337783) Type 2 diabetes mellitus without complications (E11.9) Active confirmed Problem Morbid obesity (disorder) (374335829) Morbid (severe) obesity due to excess calories (E66.01) Active confirmed Problem History of dysplasia of cervix (095597685) Personal history of cervical dysplasia (Z87.410) Active confirmed Problem Type II diabetes mellitus without complication (795577218) Diabetes mellitus without mention of complication, type II or unspecified type, not stated as uncontrolled (250.00) Active confirmed Major Problem Vulvovaginitis (disorder) (57123481) Unspecified vaginitis and vulvovaginitis (616.10) Active confirmed Diag Problem Asthma (disorder) (913891512) Asthma, unspecified, unspecified status (493.90) Active confirmed Major Problem Postmenopausal atrophic vaginitis (40137666) Postmenopausal atrophic vaginitis (627.3) Active confirmed Diag Problem Human papilloma virus deoxyribonucleic acid test positive, high risk on vaginal specimen (691102492775466) Cervical high risk human papillomavirus (HPV) DNA test positive (795.05) Active confirmed Major Plan Of Treatment Pending Test Test Name Order Date MAMMOGRAM, SCREENING 08/05/2022 Urinalysis 12/25/2018 MM Digital Mammo Screening 12/25/2018 MM Digital Mammo Screening 07/26/2021 MM Digital Mammo Screening 08/05/2022 MM Digital Mammo Screening 03/18/2016 Insurance Providers Payer Name Payer Address Payer Phone Subscriber Number Group Number Insured Name Patient Relationship to Insured Coverage Start Date Coverage End Date [employer] [address] [place] [id number] RADHA EASTMAN Self - patient is the insured Medical (General) History Medical History History ICD Code Postmenopausal atrophic vaginitis N95.2 Mild cervical dysplasia N87.0 Cervical high risk human papillomavirus (HPV) DNA test positive R87.810 Unspecified asthma, uncomplicated J45.90 9 Type 2 diabetes mellitus without complic ations E11.9 Intramural leiomyoma of uterus Pelvic and perineal pain R10.2 Abscess of vulva N76.4 Surgical History Surgery Date(Month/Year) Colposcopy Colonoscopy 2015 Left Rotator Cuff 2013 Right Rotator Cuff 12/2016 Hospitalization History Reason Date(Month/Year) See Surgical Hx
--- OUTSIDE RECORDS SUMMARY | 2024-11-18 12:24 | XMS_ITS | Encounter Summary ---
Author Organization [facility] Address [address] [facility] [address] [place] [address] Phone Care Team Providers Care Crude Oil Driver Name Role Phone Lydia Vera MD Primary Care Prov ider Encounter Details Date Type Department Care Team (Late st Contact Info) Description 02/02/2024 Procedure Pass Echo Lab [address] [place], [place] [phone] Social History Tobacco Use Types Packs/Day Years [...] Description 01/24/2025 7:40 AM EST Office Visit [facility] [address] [place] [address] [address]rd Floor, [address] [place], [place] [phone] Octavio Giron MD [address] [facility], [address] [place] [address] documented as of this encounter Visit Diagnoses Not on filedocumented in this encounter Care Teams Crude Oil Driver Relationship Specialty Start Date End Date Lydia Vera MD [address] [place] [address] [place] [address] PCP - General Endocrinology 01/14/17 documented as of this encounter Additional Source Comments The information contained in this document represents components of the legal health record. It is not the complete legal health record.[facility]
--- OUTSIDE RECORDS SUMMARY | 2024-11-18 12:24 | XMS_ITS | Encounter Summary ---
Author Organization [facility] Address [address] [facility] [address] [place] [address] Phone Care Team Providers Care Block Greaser Name Role Phone Lydia Vera MD Primary Care Prov ider Encounter Details Date Type Department Care Team (Late st Contact Info) Description 10/06/2023 Procedure Pass Echo Lab [place] [place], [place] [id number] Social History Tobacco Use Types Packs/Day Years [...] Description 01/24/2025 7:40 AM EST [facility] [address] [place] [address] [address]rd Floor, [address] [place], [place] [phone] Octavio Giron MD [address] [facility], [address] [address] documented as of this encounter Visit Diagnoses Not on filedocumented in this encounter Care Teams Block Greaser Relationship Specialty Start Date End Date Lydia Vera MD [address] [place] [address] [place] [address] PCP - General Endocrinology 01/14/17 documented as of this encounter Additional Source Comments The information contained in this document represents components of the legal health record. It is not the complete legal health record.[facility]
--- OUTSIDE RECORDS SUMMARY | 2024-11-18 12:24 | XMS_ITS | Clinical Summary ---
Author Organization [facility] [place] Address [address] [facility] [address] [place] [phone] Phone Care Team Providers Care Graphic Technician Name Role Phone Lydia Vera MD [...] Type Department Care Team Description 10/28/2024 Refill [facility] [address], [address] [place] [address] Octavio Giron MD Medication Refill 09/20/2024 Refill [facility] [address], [address] [place] [address] Citlaly Diane MA Medication Refill from Last [...] Description 01/24/2025 7:40 AM EST Office Visit [facility] [address] [place] [address] [address]rd Floor, [address] [place], [place] [phone] Octavio Giron MD 22 [facility], [address] [place] [address] [email or web address] Health Maintenance Due Date Last Done Comments [...] EST) SODIUM 142 133 - 146 mmol/L [facility] CHLORIDE 106 96 - 108 mmol/L [facility] POTASSIUM 3.9 3.3 - 5.1 mmol/L [facility] CO2 26 21 - 35 mmol/L [facility] BUN 15 6 - 19 mg/dL [facility] CREATININE 0.70 0.5 - 1.5 mg/dL [facility] GLUCOSE 175(H) 70 - 99 mg/dL [facility] CALCIUM 9.4 8.4 - 10.3 mg/dL [facility] EGFR 98 >59 mL/min/1.7 3m2 [facility] Comment:Estimated glomerular filtration rate calculated using the CKD-EPI refit equation. ANION GAP 14 10 - 20 mmol/L [facility] Blood 02/13/2024 1:09 PM EST 02/13/2024 1:19 PM EST us Octavio Giron MD LAB BLOOD ORDERABLES Final Re sult [facility] [address] [place] [address] from Last 3 Months or Most Recently Relevant to Health Maintenance [facility] [address] [place] [id number] [address] [place] [place] [address] [place] [address] [place] [place] [address] [place] [place] [address] [place], [place] [address] Care Teams Graphic Technician Relationship Specialty Start Date End Date Lydia Vera MD [address] [place] [address] [place] [address] PCP - General Endocrinology 01/14/17 Additional Source Comments The information contained in this document represents components of the legal health record. It is not the complete legal health record.[facility]
--- OUTSIDE RECORDS SUMMARY | 2024-11-18 12:24 | XMS_ITS | Encounter Summary ---
Author Organization [facility] Address [address] [facility] [address] [place] [phone] Phone Care Team Providers Care Director Of Reservations Name Role Phone Lydia Vera MD Primary Care Prov ider Reason for Referral * Physical Therapy (Routine) - Closed Specialty Diagnoses / Procedures Referred By Contac t Referred To Contact Physical Therapy Diagnoses Encounter for rehabilitation System, Provider Not In, [facility] [phone] [place] [address] Phone: tel: Referral ID Status Reason Start Date Expiration Date Visits Re quested Visits Authorized [id number] Closed 02/17/2017 02/16/2018 35 35 Encounter Details Date Type Department Care Team (Latest Contact Info) Description 01/21/2017 Transcribe Orders [facility] [address] [place] [phone] Bradley Bianchi MD [address] [place] [phone] Encounter for rehabilitation (Primary Dx) Social History [...] Description 01/24/2025 7:40 AM EST Office Visit [facility] [address], [address] [place] [address] Octavio Giron MD [address] [facility], [address] [place] [address] [email or web address] Scheduled Referrals Name Type Priority Associated Diagnoses Orde r Schedule Ambulatory referral to [facility] Physical Therapy Outpatient Referral Routine Encounter for rehabilitation Ordered: 01/21/2017 documented as of this encounter Visit Diagnoses Diagnosis Encounter for rehabilitation- Primary documented in this encounter Care Teams Director Of Reservations Relationship Specialty Start Date End Date Lydia Vera MD [address] [place] [address] [address] PCP - General Endocrinology 01/14/17 documented as of this encounter Additional Source Comments The information contained in this document represents components of the legal health record. It is not the complete legal health record.[facility]
--- NOTE | 2024-12-10 | ECG_ITS ---
Test Reason : PREOP Blood Pressure : */* mmHG Vent. Rate : 67 BPM Atrial Rate : 67 BPM P-R Int : 116 ms QRS Dur : 94 ms QT Int : 430 ms P-R-T Axes : 38 -27 -9 degrees QTcB Int : 454 ms Normal sinus rhythm Low voltage QRS Inferior infarct , age undetermined Abnormal ECG When compared with ECG of 14-Jan-2024 08:21, Inferior infarct is now Present Referred By: Mariya Haider Electronically Signed By: SIDNEY MATA MD
[2024-12-10 12:12] VITALS: BP 143/65; PULSE 70; RESP 18; O2SAT 97; BMI 36.4
--- NOTE | 2024-12-10 12:29 | HO.ANESPROP2 ---
HPI - Anesthesia Eval Consult details Narrative: To be rescheduled once cardiology gives recommendations for stopping blood thinners 64yo F for L3-4 Lumbar Decompression, 12/16/24 Follows [facility]. Stable at 07/2024 office visit with improvement in EF. -Awaiting preop rec's/med hold rec's No recent illness - slight congestion with allergies No CP/SOB with very limited activity d/t pain UT 07/2023 s/p stents x 4 at that time - lifelong aspirin (plavix d/c'd at last cardiac office visit) CHF: euvolemic on entresto, lasix PAF: eliquis DM2: FBS ~ 130 Asthma: well controlled Anesthesia Pre-Procedure Meds Is the patient on any of the following meds?: GLP1/DPP4 and SGLT2 Inhib PMFSH Active Problems Active Problems: All Active Problems Lumbar stenosis with neurogenic claudication (Acute) Migraine equivalent syndrome (Acute) Past Medical History Medical History Arthritis DVT (deep venous thrombosis) Asthma CHF (congestive heart failure) 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 PAF (paroxysmal atrial fibrillation) CAD (coronary artery disease) Myocardial infarction Obesity Diabetes HTN (hypertension) Family History Family history of problems with anesthesia: No Surgical History Surgical History History of esophagogastroduodenoscopy (EGD) H/O colonoscopy Hx of lumbar discectomy Hx of myomectomy Hx of rotator cuff surgery Hx of heart artery stent History of Problems with Anesthesia: No Social History Social History Are you a primary day care teacher to a significant other at home: No Do you presently have visiting nurse or other home services: No Alcohol intake: never Patient Tobacco Use Status: Never used Tobacco Use of substances other than those prescribed or required for medical reasons: No Have you been hit, kicked, punched, or otherwise hurt by someone within the past year? If so, by whom?: No Spiritual Healthcare Practices: no Worship Healthcare Practices: no Cultural Healthcare Practices: no Are you DNR?: No Advance Directives: Yes Advance Directives Information Provided: Yes Advance Directives on File: Yes Advance Directives Date on File: 06/05/21 service: No Meds Allergies Allergy/AdvReac Type Severity Reaction Status Date / Time ranitidine (From Zantac) Allergy Severe Anaphylaxis Verified 12/16/24 12:50 environmental allergies Allergy Intermediate positive Verified 12/16/24 12:50 allergy testing morphine Allergy Intermediate Hives Verified 12/16/24 12:50 Penicillins Allergy Intermediate Hives Verified 12/16/24 12:50 Home Medications ?Medication ?Instructions ?Recorded ?Confirmed ?Last Taken ?Type insulin glargine U-300 conc 300 40 unit subcut QAM 06/02/21 12/10/24 06/01/21 History unit/mL (3 mL) subcutaneous pen (Toujeo Max U-300 SoloStar) insulin lispro 100 unit/mL 18 - 22 unit subcut TIDAC 06/02/21 12/10/24 06/01/21 History subcutaneous pen (Humalog KwikPen (U-100) Insulin) albuterol sulfate 90 mcg/actuation 2 puff inhalation Q6H PRN wheezing 12/09/24 12/09/24 Unknown History aerosol inhaler apixaban 5 mg tablet (Eliquis) 5 mg PO BID 12/09/24 12/09/24 12/12/24 History aspirin 81 mg tablet,delayed 81 mg PO DAILY 12/09/24 12/09/24 12/12/24 History release atorvastatin 80 mg tablet 80 mg PO BEDTIME 12/09/24 12/10/24 Unknown History carvedilol 3.125 mg tablet 3.125 mg PO BID 12/09/24 12/09/24 Unknown History empagliflozin 10 mg tablet 10 mg PO QAM 12/09/24 12/10/24 12/12/24 History (Jardiance) isosorbide mononitrate 120 mg 120 mg PO QAM 12/09/24 12/10/24 Unknown History tablet,extended release 24 hr pantoprazole 20 mg tablet,delayed 20 mg PO QAM 12/09/24 12/10/24 Unknown History release sacubitril 49 mg-valsartan 51 mg 1 tab PO BID 12/09/24 12/09/24 Unknown History tablet (Entresto) tirzepatide 7.5 mg/0.5 mL 7.5 mg subcut QWEEK 12/09/24 12/10/24 11/27/24 History subcutaneous pen injector (Mounjaro) furosemide 20 mg tablet (Lasix) 20 mg PO QAM 12/10/24 12/10/24 Unknown History insulin glargine U-300 conc 300 50 unit subcut BEDTIME 12/10/24 12/10/24 Unknown History unit/mL (3 mL) subcutaneous pen (Toujeo Max U-300 SoloStar) Exam Height,Weight and Vital Signs: Height 5 ft 4 in Weight 96.2 kg Last Vital Signs Pulse 70 12/10/24 12:12 Resp 18 12/10/24 12:12 BP 143/65 H 12/10/24 12:12 Pulse Ox 97 12/10/24 12:12 O2 Del Method Room Air 12/10/24 12:12 Pertinent Lab Results Pertinent Lab Results: Labs from outside facility CMP 07/2024 WNL CBC 07/2024 WNL Narrative Narrative: EKG 11/2024 Vent. Rate : 67 BPM Atrial Rate : 67 BPM P-R Int : 116 ms QRS Dur : 94 ms QT Int : 430 ms P-R-T Axes : 38 -27 -9 degrees QTcB Int : 454 ms Normal sinus rhythm Low voltage QRS Inferior infarct , age undetermined Abnormal ECG When compared with ECG of 14-Jan-2024 08:21, Inferior infarct is now Present ECHO 06/2024 Airway Loose/Missing/Broken Teeth: Yes (right upper broken, crowned molars) Heart: RRR Lungs: CTAB Assessment and Plan Assessment Anesthesia Assessment: Anesthesia Plan Discussed and PAT Visit Final Anesthetic Review Family History of Problems with Anesthesia: No History of Problems with Anesthesia: No
--- NOTE | 2024-12-16 11:09 | MHC.SHP ---
Pre-Procedural Eval Section A - 24 Hr Update-Section A only Date of Service: 12/16/24 The patient is an INPATIENT: No Section B - Complete if H&P > 30 days Chief Complaint: Spinal stenosis, lumbar region with neurogenic Allergies: Allergies Allergy/AdvReac Type Severity Reaction Status Date / Time ranitidine (From Zantac) Allergy Severe Anaphylaxis Verified 12/09/24 07:19 environmental allergies Allergy Intermediate positive Verified 12/10/24 12:03 allergy testing morphine Allergy Intermediate Hives Verified 12/09/24 07:19 Penicillins Allergy Intermediate Hives Verified 12/09/24 07:19 Review of Systems Sugical H&P ROS: Negative: Constitution, Cardiovascular, Respiratory, Neurological, Psychiatric, Hem-Onc, Allergic/Immunologic, Gastrointestinal, Genitourinary, Musculoskeletal, Integumentary, Endocrine and Eyes/Ears/Nose/Throat Exam Surgical H&P Exam: Normal: HEENT, Normal: Heart, Normal: Lungs, Normal: Extremities, Normal: Abdomen, Normal: Skin and Normal: Neurological (Awake, alert) Plan Diagnosis/Plan: Unchanged L3-4 decompression Time Spent With Patient Time: Total time managing care of this patient today 5 ___ minutes.
[2024-12-16 11:40] VITALS: BMI 36.6
[2024-12-16 11:41] LABS: Glucose, Whole Blood 135 mg/dL (60-115)
[2024-12-16 11:42] VITALS: BP 90/51; PULSE 90; RESP 18; TEMP 36.7; O2SAT 96
[2024-12-16 12:30] VITALS: BP 89/50
[2024-12-16] MEDS: Lactated Ringers 1,000 ML 100 ML IVCONT (12:37)
--- NOTE | 2024-12-16 12:51 | PC.NURSE ---
Dr. Bowman and Dr. May aware that cardiology office never shared addendum that it was okay for patient to stop her Eliquis and ASA [address] May office has been requesting note since October, per Luz. Cardiology office is reaching out to doctor on vacation to see if it was approved for patient to stop blood thinners as she did. There is no notation for stopping or not stopping it from [place] [facility]. Awaiting response.
[2024-12-16 13:00] VITALS: BP 108/66
--- NOTE | 2024-12-16 14:10 | PC.NURSE ---
Dr. May visited with patient and stated that patient would need to reschedule today's procedure as the proper documentation was never received from the cardiology department, per surgeon whether patient was to stop or not stop her Eliquis and ASA. Patient educated to restart blood thinners today per surgeon. IV removed - patient had agreed to placement in case procedure was to be done and bp was low, slight hydration given only KVO due to hx CHF. All belongings given back to patient and signed belongings list in chart. Patient to meet ride in lobby. Verbalized understanding of all the above.
== END ==
LOC: HO.SSS 10:53
PROVIDERS: PCP Internal Medicine; Visit Provider Neurological Surgery
DX: M48.062 Spinal stenosis, lumbar region with neurogenic claudication (principal); Z53.8 Procedure and treatment not carried out for other reasons; I50.9 Heart failure, unspecified; Z79.01 Long term (current) use of anticoagulants; Z79.82 Long term (current) use of aspirin; E11.9 Type 2 diabetes mellitus without complications; Z79.4 Long term (current) use of insulin
CPT/HCPCS: 82947; 93005; J0131; J2003; J2704; J3374